=== PATIENT | male | born 1955 | race Caucasian/White ===

== ENCOUNTER 2016-12-21 13:33 | Inpatient (IN) | payer MEDICARE, OTHER ==
[~2016-12-21] VITALS: Ht 188 cm; Wt 109.0 kg
[2016-12-22] MEDS ORDERED: OXYM10TA PO (09:18)
[2016-12-22] MEDS ORDERED: OXYM40TA PO (09:18)
[2016-12-22] MEDS ORDERED: DIPH25CA PO (09:18)
[2016-12-22] MEDS ORDERED: TRIA37.5 PO (11:25)
[2016-12-22] MEDS ORDERED: MELO-1 PO (11:25)
[2016-12-22] MEDS ORDERED: ATOR20TA15 PO (11:25)
[2017-01-08 05:56] VITALS: BP 145/88; PULSE 72; RESP 20; TEMP 98.1; O2SAT 95
[2017-01-08] MEDS ORDERED: ceFAZolin 2 GM PREMIX 50 ML ONE (06:04)
[2017-01-08] MEDS ORDERED: VANCOMYCIN HCL 1000 MG VIAL ONE (06:04)
[2017-01-08] MEDS ORDERED: LACTATED RINGER'S 1000 ML INJ 1,000 ML ONE (06:05)
[2017-01-08] MEDS ORDERED: SODIUM CHLOR 0.9% 250 ML INJ 250 ML ONE (06:05)
[2017-01-08] MEDS ORDERED: GENTAMICIN SULFATE 80 MG/2 ML VIAL ONE (06:07)
[2017-01-08] MEDS: POVIDONE IODINE 7.5% SCRUB 118 ML BOTTLE TOPICAL SCH (06:20)
[2017-01-08] MEDS ORDERED: ACETAMINOPHEN 1000 MG/100 ML VIAL IV ONE (06:30)
[2017-01-08] MEDS ORDERED: INSULIN HUMAN REGULAR 1,000 UNITS/10 ML VIAL SQ PRN (06:45)
[2017-01-08] MEDS ORDERED: CHLORHEXIDINE GLUCONATE 4% SOLN 120 ML BTL TOPICAL SCH (06:45)
[2017-01-08] MEDS ORDERED: SODIUM CHLORIDE 0.9% IV SCH (06:45)
[2017-01-08] MEDS ORDERED: TRANEXAMIC ACID IV SCH (06:45)
[2017-01-08] MEDS ORDERED: TRANEXAMIC PERI-ARTICULAR 3,000 MG/NS 100 ML P-ARTICULR SCH ×2 (06:45)
[2017-01-08] MEDS ORDERED: ceFAZolin 2 GM PREMIX 50 ML IV SCH (06:45)
[2017-01-08] MEDS ORDERED: LACTATED RINGER'S 1000 ML IV PRN (06:45)
[2017-01-08] MEDS ORDERED: CHLORHEXIDINE GLUCONATE 2 % 1 PACK (2 CLOTHS) TOPICAL PRN (06:45)
[2017-01-08] MEDS ORDERED: EXPAREL PERI-ARTICULAR INJECTION (TOTAL VOL. 60 ML) P-ARTICULR SCH ×2 (06:45)
[2017-01-08] MEDS ORDERED: VANCOMYCIN 1000 MG/NS 250 ML (for <70 kg) IV SCH ×2 (06:45)
[2017-01-08] MEDS ORDERED: POVIDONE IODINE 5% (ANTISEPSIS KIT) 4 APPLICATIONS EACH NARE PRN (06:45)
[2017-01-08] MEDS ORDERED: SODIUM CHLORID 0.9% 500 ML IV PRN (06:45)
[2017-01-08] MEDS ORDERED: METOPROLOL TARTRATE 25 MG TAB PO PRN (06:45)
[2017-01-08] MEDS ORDERED: MIDAZOLAM HCL 2 MG/2 ML VIAL ONE (06:47)
[2017-01-08] MEDS ORDERED: DEXAMETHASONE SOD PHOS 4 MG/ML VIAL ONE (06:47)
[2017-01-08] MEDS ORDERED: FAMOTIDINE 20 MG/2 ML VIAL ONE (06:47)
[2017-01-08] MEDS ORDERED: ASPI81CH37 CHEW (06:54)
[2017-01-08] MEDS ORDERED: ENOX40P SQ (06:54)
[2017-01-08] MEDS ORDERED: HYDR-3366 PO (06:55)
[2017-01-08] MEDS ORDERED: BISACODYL 10 MG SUPP RECTAL PRN (07:00)
[2017-01-08] MEDS ORDERED: SODIUM CHLORIDE 0.9% FLUSH 5 ML FLUSH IVF PRN (07:00)
[2017-01-08] MEDS ORDERED: ALUMINUM/MAGNESIUM/SIMETH 30 ML CUP PO PRN (07:00)
[2017-01-08] MEDS ORDERED: HYDROmorphone HCL PF 2 MG/ML VIAL IV PRN (07:00)
[2017-01-08] MEDS ORDERED: diphenhydrAMINE HCL 50 MG/ML VIAL IV PRN (07:00)
[2017-01-08] MEDS ORDERED: ONDANSETRON HCL 4 MG/2 ML VIAL IVP PRN (07:00)
[2017-01-08] MEDS ORDERED: Post-op Orders (for Pharmacy) MISC XX ONE (07:00)
[2017-01-08] MEDS ORDERED: NALOXONE HCL 0.4 MG/ML AMP IV PRN (07:00)
[2017-01-08] MEDS ORDERED: ACETAMINOPHEN/HYDROcodone 325 MG/7.5 MG TAB PO PRN (07:00)
[2017-01-08] MEDS: TRIAMTERENE/HCTZ 37.5 MG/25 MG TAB PO SCH (09:00)
[2017-01-08] MEDS: diphenhydrAMINE HCL 25 MG CAP PO SCH ×3 (09:00→18:00)
[2017-01-08] MEDS: SODIUM CHLORIDE 0.9% FLUSH 5 ML FLUSH IVF SCH ×2 (09:00→21:00)
[2017-01-08] MEDS ORDERED: *morphine SULFATE 8 MG/ML PERIprocedure ONLY ONE ×2 (09:13→09:30)
[2017-01-08] MEDS ORDERED: DO NOT ADM ANY ANTICOAGULANT DRUGS PRN (09:13)
[2017-01-08] MEDS: SODIUM CHLOR 0.9% 1000 ML INJ 1,000 ML IV SCH ×2 (09:38→16:51)
[2017-01-08] MEDS ORDERED: fentaNYL CITRATE 250 MCG/5 ML AMP ONE (09:39)
--- NOTE | 2017-01-08 10:07 | RADRPT ---
EXAM DATE/TIME: 01/08/2017 09:25 [facility] COMPARISON: No previous studies available for comparison. INDICATIONS : Post-op total left hip arthroplasty. MEDICAL HISTORY : Hypertension. SURGICAL HISTORY : Tonsillectomy. Total knee replacement, left. Total knee replacement, right. Inguinal hernia repair. Right eye cateract. ENCOUNTER: Initial ACUITY: 1 day PAIN SCORE: 5/10 LOCATION: Left hip. FINDINGS: 2 AP views of the pelvis were obtained as well as a coned-down view of the left hip and cross table l ateral view of the left hip. This demonstrates that the patient is status post left hip arthroplasty. The femoral and acetabular components are intact and in normal alignment. Extensive degenerative addie nges are noted in the right hip with superior joint space loss, sclerosis and hypertrophic spurring. There is no evidence of fracture. Subcutaneous emphysema is noted surrounding portions of the left hi p. CONCLUSION: 1. Status post left hip arthroplasty. 2. Extensive degenerative change in the right hip. Pantera Smith MD on January 08, 2017 at 10:03 Board Certified Radiologist. This report was verified electronically.
--- NOTE | 2017-01-08 10:33 | PD.CONS ---
HPI Service [facility] Consult Requested By Reason for Consult medical management Primary Care Physician Hali Nazario MD Diagnoses: History of Present Illness patient is a 61 y/o male with history of osteoarthritis who underwent left total hip arthroplasty today. at the time of my evaluation he was resting comfortably with no distress however was complaining of some pain to the left hip. he denies any other complaints including chest pain, sob, dizziness or sob. Review of Systems Constitutional: DENIES: Fever, Weight loss, Chills, Night Sweats Eyes: DENIES: Blurred vision, Diplopia, Vision loss, Double Vision Ears, nose, mouth, throat: DENIES: Tinnitus, Vertigo, Throat pain, Epistaxis Respiratory: DENIES: Apneas, Cough, Snoring, Wheezing, Hemoptysis, Sputum production, Shortness of breath Cardiovascular: DENIES: Chest pain, Palpitations, Syncope, Dyspnea on Exertion , PND, Lower Extremity Edema, Orthopnea, Claudication Gastrointestinal: DENIES: Abdominal pain, Black stools, Bloody stools, Constipation, Diarrhea, Nausea, Vomiting, Difficulty Swallowing, Anorexia Genitourinary: DENIES: Urinary frequency, Urgency, Hematuria, Dysuria Musculoskeletal: COMPLAINS OF: Joint pain (left hip), DENIES: Muscle aches, Stiffness, Joint Swelling Integumentary: DENIES: Rash Neurologic: DENIES: Abnormal gait, Headache, Localized weakness, Paresthesias, Seizures, Speech Problems, Tremor, Poor Balance Psychiatric: DENIES: Anxiety, Confusion, Mood changes, Depression, Hallucinations, Agitation, Suicidal Ideation, Homicidal Ideation, Delusions Past Family Social History Allergies: Coded Allergies: No Known Allergies (Unverified , 01/08/17) Past Medical History osteoarthritis hypertension dyslipidemia Past Surgical History knee replacement tonsillectomy eye surgery Reported Medications Triamterene-HCTZ atorvastatin Active Ordered Medications Current Medications Cefazolin Sodium/ Dextrose (Ancef 2 Gm Premix) 50 ml @ As Directed STK-MED ONCE .ROUTE Last administered on 01/08/17 06:08; Start 01/08/17 at 06:04; Stop at 06:05; Status DC Vancomycin HCl 1000 mg 1,000 mg STK-MED ONCE .ROUTE Last administered on 06:30; Start 01/08/17 at 06:04; Stop 01/08/17 at 06:05; Status DC Sodium Chloride 250 ml @ As Directed STK-MED ONCE .ROUTE Last administered on 01/08/17 06:25; Start 01/08/17 at 06:05; Stop 01/08/17 at 06:06; Status DC Lactated Ringer's (Lr 1000 ml Inj) 1,000 ml @ As Directed STK-MED ONCE .ROUTE Last administered on 01/08/17 05:50; Start 01/08/17 at 06:05; Stop 01/08/17 at 06:06; Status DC Gentamicin Sulfate (Gentamicin Inj) 240 mg STK-MED ONCE .ROUTE Last administered on 01/08/17 07:33; Start 01/08/17 at 06:07; Stop 01/08/17 at 06:08 ; Status DC Acetaminophen 1000 mg 1,000 mg STK-MED ONCE IV ; Start 01/08/17 at 06:30; Stop 01/08/17 at 06:31; Status DC Lactated Ringer's 1,000 ml @ 30 mls/hr Q24H PRN IV SEE LABEL COMMENTS; Start at 06:45; Stop 01/08/17 at 08:49; Status DC Sodium Chloride (NS 500 ml Inj) 500 ml @ 30 mls/hr [id number] PRN IV SEE LABEL COMMENTS; Start 01/08/17 at 06:45; Stop 01/08/17 at 08:49; Status DC Metoprolol Tartrate (Lopressor) 25 mg SANDING MACHINE TENDER AUTOMATIC PRN PO SEE LABEL COMMENTS; Start 01/08/17 at 06:45; Stop 01/11/17 at 06:44 Povidone Iodine (Betadine 5% Antisepsis Kit) 1 applic SANDING MACHINE TEND[employer] PRN EACH NARE SEE LABEL COMMENTS Last administered on 01/08/17 06:20; Start 01/08/17 at 06:45 ; Stop 01/11/17 at 06:44 Chlorhexidine Gluconate (Chlorhexidine 2% Cloth) 3 pack SANDING MACHINE TEND[employer] PRN TOPICAL SEE LABEL COMMENTS; Start 01/08/17 at 06:45; Stop 01/11/17 at 06:44 Insulin Human Regular (NovoLIN R INJ) See Protocol Table ... SANDING MACHINE TENDER [employer] PRN SQ SEE PROTOCOL TABLE; Start 01/08/17 at 06:45; Stop 01/11/17 at 06:44 Povidone Iodine (Betadine 7.5% Scrub) 1 applic ONCE TOPICAL Last administered on 01/08/17 06:20; Start 01/08/17 at 06:45; Stop 01/11/17 at 06:44 Chlorhexidine Gluconate 1 applic 1 applic ONCE TOPICAL ; Start 01/08/17 at 06:45 ; Stop 01/11/17 at 06:44 Cefazolin Sodium/ Dextrose 50 ml @ 100 mls/hr SANDING MACHINE TEND[employer] IV ; Start 01/08/17 at 06:45; Stop 01/11/17 at 06:44 Vancomycin HCl 1000 mg/Sodium Chloride 250 ml @ 250 mls/hr SANDING MACHINE T[employer] IV ; Start 01/08/17 at 06:45; Stop 01/11/17 at 06:44 Tranexamic Acid 1642.5 mg/Sodium Chloride 116.425 ml @ 200 mls/ hr ONCE IV Last administered on 01/08/17 07:15; Start 01/08/17 at 06:45; Stop 01/09/17 at 06:44 Bupivacaine Liposome 20 ml/ Sodium Chloride 60 ml @ 120 mls/hr ONCE P-ARTICULR Last administered on 01/08/17 07:33; Start 01/08/17 at 06:45; Stop 01/09/17 at 06:44 Tranexamic Acid/ Sodium Chloride (Cyklokapron Inj/ NS Inj) 130 ml @ 260 mls/hr ONCE P-ARTICULR Last administered on 01/08/17 07:33; Start 01/08/17 at 06:45; Stop 01/09/17 at 06:44 Famotidine (Pepcid Inj) 20 mg STK-MED ONCE .ROUTE ; Start 01/08/17 at 06:47; Stop 01/08/17 at 06:48; Status DC Midazolam HCl (Versed Inj) 2 mg STK-MED ONCE .ROUTE ; Start 01/08/17 at 06:47; Stop 01/08/17 at 06:48; Status DC Dexamethasone Sodium Phosphate (Decadron Inj) 4 mg STK-MED ONCE .ROUTE ; Start 01/08/17 at 06:47; Stop 01/08/17 at 06:48; Status DC Diphenhydramine HCl (Benadryl) 25 mg TID PO ; Start 01/08/17 at 09:00 Oxymorphone HCl (Opana Er) 10 mg DAILY PO ; Start 01/09/17 at 09:00 Triamterene/HCTZ (Maxzide 37.5-25 Mg) 0.5 tab DAILY PO ; Start 01/08/17 at 09:00 Non-Formulary Medication 80 mg 80 mg Q12HR PO PAIN; Start 01/08/17 at 09:00; Status UNV Sodium Chloride (NS 1000 ml Inj) 1,000 ml @ 100 mls/hr Q10H IV Last administered on 01/08/17t 09:38; Start 01/08/17 at 06:51 IV Flush (NS Flush) 2 ml UNSCH PRN IVF FLUSH AFTER USING IV ACCESS; Start 01/08 at 07:00 IV Flush 2 ml 2 ml BID IVF ; Start 01/08/17 at 09:00 Cefazolin Sodium/ Dextrose (Ancef 2 Gm Premix) 50 ml @ 100 mls/hr Q6H IV ; Start 01/08/17 at 12:00; Stop 01/09/17 at 00:29 Miscellaneous Information (Post-op Orders (for Pharmacy)) STAT ONCE XX ; Start 01/08/17 at 07:00; Stop 01/08/17 at 10:16; Status DC Enoxaparin Sodium (Lovenox Inj) 40 mg Q24H SQ ; Start 01/09/17 at 08:00; Stop at 08:01 Hydromorphone HCl (Dilaudid Pf Inj) 1 mg Q3H PRN IV PAIN GREATER THAN 7; Start 01/08/17 at 07:00 Acetaminophen/ Hydrocodone Bitart ([place] 7.5-325 Mg) 1 tab Q4H PRN PO PAIN LESS THAN 5 ON SCALE; Start 01/08/17 at 07:00 Acetaminophen/ Hydrocodone Bitart ([place] 7.5-325 Mg) 2 tab Q4H PRN PO PAIN SCALE 5 TO 10; Start 01/08/17 at 07:00 Multivitamins/ Minerals Therapeutic (Theragran M Tab) 1 tab BID PO ; Start 01/09 at 21:00; Stop 03/10/17 at 20:59 Ondansetron HCl (Zofran Inj) 4 mg Q6H PRN IVP NAUSEA OR VOMITING; Start at 07:00 Docusate Sodium (Colace) 100 mg BID PO ; Start 01/09/17 at 21:00 Al Hydrox/Mg Hydrox/Simethicone (Mag-Al Plus Susp Liq) 30 ml Q6H PRN PO INDIGESTION; Start 01/08/17 at 07:00 Zolpidem Tartrate (Ambien) 5 mg HS PRN PO SLEEP; Start 01/08/17 at 21:00 Bisacodyl (Dulcolax Supp) 10 mg DAILY PRN RECTAL CONSTIPATION; Start 01/08/17 at 07:00 Naloxone HCl (Narcan Inj) 0.4 mg UNSCH PRN IV RESPIRATORY RATE LESS THAN 10; Start 01/08/17 at 07:00 Diphenhydramine HCl (Benadryl Inj) 25 mg Q6H PRN IV ITCHING; Start 01/08/17 at 07:00 Morphine Sulfate (*morphine INJ PERIprocedure ONLY) 8 mg STK-MED ONCE .ROUTE Last administered on 01/08/17 09:13; Start 01/08/17 at 09:13; Stop 01/08/17 at 09:14; Status DC Morphine Sulfate (*morphine INJ PERIprocedure ONLY) 8 mg STK-MED ONCE .ROUTE Last administered on 01/08/17 09:30; Start 01/08/17 at 09:30; Stop 01/08/17 at 09:31; Status DC Fentanyl Citrate (fentaNYL INJ) 500 mcg STK-MED ONCE .ROUTE ; Start 01/08/17 at 09:39; Stop 01/08/17 at 09:40; Status DC Miscellaneous Information ALL NURSING DEPARTME... UNSCH PRN .XX SEE LABEL COMMENTS; Start 01/08/17 at 09:13; Stop 01/09/17 at 09:12 Family History nor relevant to this consult. Social History no smoking or drinking. Physical Exam Vital Signs Vital Signs Date Time Temp Pulse Resp B/P Pulse Ox O2 Delivery O2 Flow Rate FiO2 01/08/17 10:00 77 14 97/62 93 Nasal Cannula 4 01/08/17 09:45 70 15 134/84 92 Nasal Cannula 4 01/08/17 09:30 64 15 118/77 93 Nasal Cannula 4 01/08/17 09:15 75 17 96/60 92 Nasal Cannula 4 01/08/17 09:09 98.8 76 14 128/96 92 Nasal Cannula 4 01/08/17 05:56 98.1 72 20 145/88 95 Physical Exam GENERAL: This is a well-nourished, well-developed patient, in no apparent distress. HEAD: Atraumatic. Normocephalic. No temporal or scalp tenderness. EYES: Pupils equal round and reactive. Extraocular motions intact. No scleral icterus. No injection or drainage. ENT: Nose without bleeding, purulent drainage or septal hematoma. Throat without erythema, tonsillar hypertrophy or exudate. Uvula midline. Airway patent. NECK: Trachea midline. No JVD or lymphadenopathy. Supple, nontender, no meningeal signs. CARDIOVASCULAR: Regular rate and rhythm without murmurs, gallops, or rubs. RESPIRATORY: Clear to auscultation. Breath sounds equal bilaterally. No wheezes , rales, or rhonchi. GASTROINTESTINAL: Abdomen soft, non-tender, nondistended. No hepato-splenomegaly , or palpable masses. No guarding. MUSCULOSKELETAL: Extremities without clubbing, cyanosis, or edema. No joint tenderness, effusion, or edema noted. No calf tenderness. Negative Homans sign bilaterally. NEUROLOGICAL: Awake and alert. Cranial nerves II through XII intact. Motor and sensory grossly within normal limits. Five out of 5 muscle strength in all muscle groups. Normal speech. Laboratory Laboratory Tests Test 01/08/17 05:50 Blood Type A POSITIVE Antibody Screen NEGATIVE Blood Bank Comment Imaging Last Impressions Hip and Pelvis X-Ray 01/08/17 0651 Signed Impressions: Service Date/Time: Sunday, January 08, 2017 09:25 - CONCLUSION: 1. Status post left hip arthroplasty. 2. Extensive degenerative change in the right hip. Pantera Smith MD Assessment and Plan Assessment and Plan A/P - osteoarthritis- s/p left total hip arthroplasty continue with pain control and PT- management per ortho. -hypertension; resumed home meds- will monitor and adjust the regimen as needed. -DVT prophylaxis with Lovenox- per ortho. thank you for the consult. Discussed Condition With the patient. Frida Bone MD Jan 08, 2017 10:33
[2017-01-08 10:52] VITALS: BP 152/72; PULSE 83; RESP 17; TEMP 95.4; O2SAT 95
[2017-01-08] MEDS: ceFAZolin 2 GM PREMIX 50 ML IV SCH ×2 (11:10→18:28)
[2017-01-08] MEDS ORDERED: ONDANSETRON HCL 4 MG/2 ML VIAL IV PUSH ONE (12:29)
[2017-01-08] MEDS ORDERED: PROPOFOL 200 MG/20 ML AMP IV ONE (12:29)
[2017-01-08] MEDS ORDERED: NEOSTIGMINE 3 MG/3 ML SYR IV ONE (12:29)
[2017-01-08] MEDS ORDERED: LACTATED RINGER'S 1000 ML INJ 1,000 ML IV ONE (12:30)
[2017-01-08] MEDS: ACETAMINOPHEN/HYDROcodone 325 MG/7.5 MG TAB PO PRN (12:33)
--- NOTE | 2017-01-08 13:02 | HHI.DCPOC ---
Discharge Care Plan Diagnosis: (1) Primary localized osteoarthrosis, pelvic region and thigh Your Health Problems Are: Difficulty with ADL Goals to Promote Your Health * To prevent worsening of your condition and complications * To maintain your health at the optimal level Directions to Meet Your Goals Take your medications as prescribed Follow your dietary instruction Follow activity as directed Keep your appointments as scheduled Take your immunizations and boosters as scheduled If your symptoms worsen call your PCP, if no PCP go to Urgent Care Center or Emergency Room Smoking is Dangerous to Your Health. Avoid second hand smoke Call the 24-hour hour crisis hotline for domestic abuse at Sixto Rea Jan 08, 2017 13:02
[2017-01-08] MEDS ORDERED: WALKER WHEELS/F1 MIS (13:03)
[2017-01-08] MEDS ORDERED: COMMODE 3-IN-11 MIS (13:03)
[2017-01-08 14:04] VITALS: O2SAT 93
[2017-01-08 15:00] VITALS: BP 152/83; PULSE 93; RESP 17; TEMP 97.5; O2SAT 92
[2017-01-08 16:16] VITALS: O2SAT 93
--- NOTE | 2017-01-08 16:28 | RADRPT ---
EXAM DATE/TIME: 01/08/2017 07:22 [facility] COMPARISON: No previous studies available for comparison. INDICATIONS : Left anterior total hip arthroplasty. OR. MEDICAL HISTORY : Hypertension. SURGICAL HISTORY : Tonsillectomy. Total knee replacement, left. Total knee replacement, right. Inguinal hernia repair. Right eye cateract. ENCOUNTER: Initial ACUITY: 1 day PAIN SCORE: Non-responsive. LOCATION: Left hip FINDINGS: AP and mildly obliqued view of the left hip were obtained and demonstrate that the patient status pos t arthroplasty. The femoral and acetabular components are intact. There is normal alignment. Overlyin g surgical skin gris. CONCLUSION: Expected postoperative changes status post left hip arthroplasty. Pantera Smith MD on January 08, 2017 at 16:26 Board Certified Radiologist. This report was verified electronically.
[2017-01-08 19:00] VITALS: BP 137/84; PULSE 98; RESP 17; TEMP 97; O2SAT 92
[2017-01-08] MEDS ORDERED: ZOLPIDEM TARTRATE 5 MG TAB PO PRN (21:00)
[2017-01-08] MEDS: OXYMORPHONE 10 MG E.R. TAB PO SCH (21:42)
[2017-01-09] VITALS (10 sets, daily range): BP systolic 85–160; BP diastolic 60–82; PULSE 70–101; RESP 16–20; TEMP 96.2–100.4; O2SAT 91–93
[2017-01-09] MEDS: ceFAZolin 2 GM PREMIX 50 ML IV SCH (01:14)
[2017-01-09] MEDS: SODIUM CHLOR 0.9% 1000 ML INJ 1,000 ML IV SCH ×3 (02:51→22:51)
[2017-01-09 06:23] LABS: HEMATOCRIT 42.2 % (39.0-51.0); MEAN CORPUSCULAR HEMOGLOBIN 29.7 PG (27.0-34.0); MEAN CORPUSCULAR HGB CONC 33.4 % (32.0-36.0); PLATELET COUNT 186 TH/MM3 (150-450); RED BLOOD COUNT 4.75 MIL/MM3 (4.50-5.90); RED CELL DISTRIBUTION WIDTH 13.6 % (11.6-17.2); REVIEW FLAG FINAL
[2017-01-09] MEDS: POVIDONE IODINE 7.5% SCRUB 118 ML BOTTLE TOPICAL SCH (06:45)
--- NOTE | 2017-01-09 08:27 | PD.ORT.PN ---
Subjective Post Op Day #: 1 Subjective Remarks pain tolerable in L hip. Objective Vitals Vital Signs Date Time Temp Pulse Resp B/P Pulse Ox O2 Delivery O2 Flow Rate FiO2 01/09/17 04:00 98.5 76 17 152/70 93 01/09/17 00:00 98.3 80 16 160/80 92 01/08/17 19:00 97.0 98 17 137/84 92 01/08/17 16:16 93 21 01/08/17 15:00 97.5 93 17 152/83 92 01/08/17 14:04 93 Nasal Cannula 4.00 01/08/17 10:52 95.4 83 17 152/72 95 01/08/17 10:00 77 14 97/62 93 Nasal Cannula 4 01/08/17 09:45 70 15 134/84 92 Nasal Cannula 4 01/08/17 09:30 64 15 118/77 93 Nasal Cannula 4 01/08/17 09:15 75 17 96/60 92 Nasal Cannula 4 01/08/17 09:09 98.8 76 14 128/96 92 Nasal Cannula 4 I/O 01/08/17 01/08/17 01/08/17 01/09/17 01/09/17 01/09/17 07:00 15:00 23:00 07:00 15:00 23:00 Intake Total 1580 ml 480 ml 200 ml Output Total 1600 ml 1300 ml 500 ml Balance -20 ml -820 ml -300 ml Intake Oral 480 ml 480 ml 200 ml Other 1100 ml Output Urine Total 800 ml 1300 ml 500 ml Estimated Blood Loss 800 ml # Bowel Movements 0 0 Result Diagram: 01/09/17 0531 Objective Remarks in bed, nad dressing c/d/i neg homans nvi Assessment & Plan Ortho Post Op Day #: 1 Problem List: Assessment and Plan s/p L JACY - anterior approach wbat daily dressing changes lovenox d/c planning to snf [id number] signed rx in chart f/up dr. alex 2 weeks Sixto Rea Jan 09, 2017 08:27
[2017-01-09] MEDS: SODIUM CHLORIDE 0.9% FLUSH 5 ML FLUSH IVF SCH ×2 (09:00→20:17)
[2017-01-09] MEDS: OXYMORPHONE 10 MG E.R. TAB PO SCH ×3 (09:00→20:16)
[2017-01-09] MEDS: ENOXAPARIN SODIUM 40 MG/0.4 ML SYRINGE SQ SCH (09:10)
[2017-01-09] MEDS: TRIAMTERENE/HCTZ 37.5 MG/25 MG TAB PO SCH (09:11)
[2017-01-09] MEDS: diphenhydrAMINE HCL 25 MG CAP PO SCH ×3 (09:21→18:00)
--- NOTE | 2017-01-09 13:19 | HHI.PR ---
Subjective Remarks resting comfortably with no distress. pain is fairly controlled. has occasional cough. no other complaints. d/w the RN. Objective Vitals Vital Signs Date Time Temp Pulse Resp B/P Pulse Ox O2 Delivery O2 Flow Rate FiO2 01/09/17 12:00 96.7 70 20 85/60 92 01/09/17 09:28 93 21 01/09/17 08:00 98.6 83 20 121/70 92 01/09/17 04:00 98.5 76 17 152/70 93 01/09/17 00:00 98.3 80 16 160/80 92 01/08/17 19:00 97.0 98 17 137/84 92 01/08/17 16:16 93 21 01/08/17 15:00 97.5 93 17 152/83 92 01/08/17 14:04 93 Nasal Cannula 4.00 I/O 01/08/17 01/08/17 01/08/17 01/09/17 01/09/17 01/09/17 07:00 15:00 23:00 07:00 15:00 23:00 Intake Total 1580 ml 480 ml 200 ml Output Total 1600 ml 1300 ml 500 ml Balance -20 ml -820 ml -300 ml Intake Oral 480 ml 480 ml 200 ml Other 1100 ml Output Urine Total 800 ml 1300 ml 500 ml Estimated Blood Loss 800 ml # Bowel Movements 0 0 Result Diagram: 01/09/17 0531 Imaging Last Impressions Hip and Pelvis X-Ray 01/08/17 0651 Signed Impressions: Service Date/Time: Sunday, January 08, 2017 09:25 - CONCLUSION: 1. Status post left hip arthroplasty. 2. Extensive degenerative change in the right hip. Pantera Smith MD Hip X-Ray 01/08/17 0000 Signed Impressions: Service Date/Time: Sunday, January 08, 2017 07:22 - CONCLUSION: Expected postoperative changes status post left hip arthroplasty. Pantera Smith MD Objective Remarks GENERAL: This is a well-nourished, well-developed patient, in no apparent distress. CARDIOVASCULAR: Regular rate and regular rhythm without murmurs, gallops, or rubs. RESPIRATORY: Clear to auscultation. Breath sounds equal bilaterally. No wheezes , rales, or rhonchi. GASTROINTESTINAL: Abdomen soft, non-tender, nondistended. Normal, active bowel sounds MUSCULOSKELETAL: Extremities without clubbing, cyanosis, or edema. NEURO: Alert & Oriented x4 to person, place, time, situation. Moves all ext x4 Medications and IVs Current Medications Cefazolin Sodium/ Dextrose (Ancef 2 Gm Premix) 50 ml @ As Directed STK-MED ONCE .ROUTE Last administered on 01/08/17 06:08; Start 01/08/17 at 06:04; Stop at 06:05; Status DC Vancomycin HCl 1000 mg 1,000 mg STK-MED ONCE .ROUTE Last administered on 06:30; Start 01/08/17 at 06:04; Stop 01/08/17 at 06:05; Status DC Sodium Chloride 250 ml @ As Directed STK-MED ONCE .ROUTE Last administered on 01/08/17 06:25; Start 01/08/17 at 06:05; Stop 01/08/17 at 06:06; Status DC Lactated Ringer's (Lr 1000 ml Inj) 1,000 ml @ As Directed STK-MED ONCE .ROUTE Last administered on 01/08/17 05:50; Start 01/08/17 at 06:05; Stop 01/08/17 at 06:06; Status DC Gentamicin Sulfate (Gentamicin Inj) 240 mg STK-MED ONCE .ROUTE Last administered on 01/08/17 07:33; Start 01/08/17 at 06:07; Stop 01/08/17 at 06:08 ; Status DC Acetaminophen 1000 mg 1,000 mg STK-MED ONCE IV ; Start 01/08/17 at 06:30; Stop 01/08/17 at 06:31; Status DC Lactated Ringer's 1,000 ml @ 30 mls/hr Q24H PRN IV SEE LABEL COMMENTS; Start at 06:45; Stop 01/08/17 at 08:49; Status DC Sodium Chloride (NS 500 ml Inj) 500 ml @ 30 mls/hr [id number] PRN IV SEE LABEL COMMENTS; Start 01/08/17 at 06:45; Stop 01/08/17 at 08:49; Status DC Metoprolol Tartrate (Lopressor) 25 mg DESK MAKER PRN PO SEE LABEL COMMENTS; Start 01/08/17 at 06:45; Stop 01/11/17 at 06:44 Povidone Iodine (Betadine 5% Antisepsis Kit) 1 applic DESK MAKER PRN EACH NARE SEE LABEL COMMENTS Last administered on 01/08/17 06:20; Start 01/08/17 at 06:45 ; Stop 01/11/17 at 06:44 Chlorhexidine Gluconate (Chlorhexidine 2% Cloth) 3 pack DESK MAKER PRN TOPICAL SEE LABEL COMMENTS; Start 01/08/17 at 06:45; Stop 01/11/17 at 06:44 Insulin Human Regular (NovoLIN R INJ) See Protocol Table ... DESK MAKER PRN SQ SEE PROTOCOL TABLE; Start 01/08/17 at 06:45; Stop 01/11/17 at 06:44 Povidone Iodine (Betadine 7.5% Scrub) 1 applic ONCE TOPICAL Last administered on 01/08/17 06:20; Start 01/08/17 at 06:45; Stop 01/11/17 at 06:44 Chlorhexidine Gluconate 1 applic 1 applic ONCE TOPICAL ; Start 01/08/17 at 06:45 ; Stop 01/11/17 at 06:44 Cefazolin Sodium/ Dextrose 50 ml @ 100 mls/hr DESK MAKER IV ; Start 01/08/17 at 06:45; Stop 01/11/17 at 06:44 Vancomycin HCl 1000 mg/Sodium Chloride 250 ml @ 250 mls/hr DESK MAKER IV ; Start 01/08/17 at 06:45; Stop 01/11/17 at 06:44 Tranexamic Acid 1642.5 mg/Sodium Chloride 116.425 ml @ 200 mls/ hr ONCE IV Last administered on 01/08/17 07:15; Start 01/08/17 at 06:45; Stop 01/09/17 at 06:44; Status DC Bupivacaine Liposome 20 ml/ Sodium Chloride 60 ml @ 120 mls/hr ONCE P-ARTICULR Last administered on 01/08/17 07:33; Start 01/08/17 at 06:45; Stop 01/09/17 at 06:44; Status DC Tranexamic Acid/ Sodium Chloride (Cyklokapron Inj/ NS Inj) 130 ml @ 260 mls/hr ONCE P-ARTICULR Last administered on 01/08/17 07:33; Start 01/08/17 at 06:45; Stop 01/09/17 at 06:44; Status DC Famotidine (Pepcid Inj) 20 mg STK-MED ONCE .ROUTE ; Start 01/08/17 at 06:47; Stop 01/08/17 at 06:48; Status DC Midazolam HCl (Versed Inj) 2 mg STK-MED ONCE .ROUTE ; Start 01/08/17 at 06:47; Stop 01/08/17 at 06:48; Status DC Dexamethasone Sodium Phosphate (Decadron Inj) 4 mg STK-MED ONCE .ROUTE ; Start 01/08/17 at 06:47; Stop 01/08/17 at 06:48; Status DC Diphenhydramine HCl (Benadryl) 25 mg TID PO Last administered on 01/09/17 09: 21; Start 01/08/17 at 09:00 Oxymorphone HCl (Opana Er) 10 mg DAILY PO ; Start 01/09/17 at 09:00 Triamterene/HCTZ (Maxzide 37.5-25 Mg) 0.5 tab DAILY PO Last administered on 09:11; Start 01/08/17 at 09:00 Oxymorphone HCl 80 mg 80 mg Q12HR PO Last administered on 01/09/17 09:21; Start 01/08/17 at 21:00 Sodium Chloride (NS 1000 ml Inj) 1,000 ml @ 100 mls/hr Q10H IV Last administered on 01/08/17 09:38; Start 01/08/17 at 06:51 IV Flush (NS Flush) 2 ml UNSCH PRN IVF FLUSH AFTER USING IV ACCESS; Start 01/08 at 07:00 IV Flush 2 ml 2 ml BID IVF ; Start 01/08/17 at 09:00 Cefazolin Sodium/ Dextrose (Ancef 2 Gm Premix) 50 ml @ 100 mls/hr Q6H IV Last administered on 01/09/17 01:14; Start 01/08/17 at 12:00; Stop 01/09/17 at 00:29 ; Status DC Miscellaneous Information (Post-op Orders (for Pharmacy)) STAT ONCE XX ; Start 01/08/17 at 07:00; Stop 01/08/17 at 10:16; Status DC Enoxaparin Sodium (Lovenox Inj) 40 mg Q24H SQ Last administered on 01/09/17 09 :10; Start 01/09/17 at 08:00; Stop 01/18/17 at 08:01 Hydromorphone HCl (Dilaudid Pf Inj) 1 mg Q3H PRN IV PAIN GREATER THAN 7; Start 01/08/17 at 07:00 Acetaminophen/ Hydrocodone Bitart ([place] 7.5-325 Mg) 1 tab Q4H PRN PO PAIN LESS THAN 5 ON SCALE; Start 01/08/17 at 07:00 Acetaminophen/ Hydrocodone Bitart ([place] 7.5-325 Mg) 2 tab Q4H PRN PO PAIN SCALE 5 TO 10 Last administered on 01/08/17 12:33; Start 01/08/17 at 07:00 Multivitamins/ Minerals Therapeutic (Theragran M Tab) 1 tab BID PO ; Start 01/09 at 21:00; Stop 03/10/17 at 20:59 Ondansetron HCl (Zofran Inj) 4 mg Q6H PRN IVP NAUSEA OR VOMITING; Start at 07:00 Docusate Sodium (Colace) 100 mg BID PO ; Start 01/09/17 at 21:00 Al Hydrox/Mg Hydrox/Simethicone (Mag-Al Plus Susp Liq) 30 ml Q6H PRN PO INDIGESTION; Start 01/08/17 at 07:00 Zolpidem Tartrate (Ambien) 5 mg HS PRN PO SLEEP; Start 01/08/17 at 21:00 Bisacodyl (Dulcolax Supp) 10 mg DAILY PRN RECTAL CONSTIPATION; Start 01/08/17 at 07:00 Naloxone HCl (Narcan Inj) 0.4 mg UNSCH PRN IV RESPIRATORY RATE LESS THAN 10; Start 01/08/17 at 07:00 Diphenhydramine HCl (Benadryl Inj) 25 mg Q6H PRN IV ITCHING; Start 01/08/17 at 07:00 Morphine Sulfate (*morphine INJ PERIprocedure ONLY) 8 mg STK-MED ONCE .ROUTE Last administered on 01/08/17 09:13; Start 01/08/17 at 09:13; Stop 01/08/17 at 09:14; Status DC Morphine Sulfate (*morphine INJ PERIprocedure ONLY) 8 mg STK-MED ONCE .ROUTE Last administered on 01/08/17t 09:30; Start 01/08/17 at 09:30; Stop 01/08/17 at 09:31; Status DC Fentanyl Citrate (fentaNYL INJ) 500 mcg STK-MED ONCE .ROUTE ; Start 01/08/17 at 09:39; Stop 01/08/17 at 09:40; Status DC Miscellaneous Information ALL NURSING DEPARTME... UNSCH PRN .XX SEE LABEL COMMENTS; Start 01/08/17 at 09:13; Stop 01/09/17 at 09:12; Status DC A/P Assessment and Plan A/P - osteoarthritis- s/p left total hip arthroplasty continue with pain control and PT- management per ortho. -hypertension; resumed home meds- will monitor and adjust the regimen as needed. -COPD ?; albuterol as needed. -DVT prophylaxis with Lovenox- per ortho. Frida Bone MD Jan 09, 2017 13:19
[2017-01-09] MEDS ORDERED: ALBUTEROL SULFATE 90 MCG/ACT HFA 18 GM INHALER INH PRN (13:30)
--- NOTE | 2017-01-09 13:44 | MP ---
cc: NOÉ GALICIA M.D. DATE OF SURGERY 01/08/2017 PREOPERATIVE DIAGNOSIS Left hip osteoarthritis. POSTOPERATIVE DIAGNOSIS Left hip osteoarthritis. PROCEDURE Left total hip arthroplasty SURGEON Dr. Noé Galicia IT ANALYST Celestino Rea PA-C ANESTHESIA General. ESTIMATED BLOOD LOSS 100 cc. COMPLICATIONS None. IMPLANTS USED DePuy Corail size 14 Press-Fit high offset femoral stem, size 54 solid [place] Gription cup, 36 highly cross-linked polyethylene neutral liner, size 36-mm ceramic head, +5 neck. JUSTIFICATION This patient is a 51-year-old male with history of severe end-stage degenerative osteoarthritis involving the left hip. He has severe disabling pain with standing, walking, ambulation, any weight-bearing activities, even has severe pain at rest which interferes with activities of daily living. He has failed greater than three months of nonoperative conservative treatment to include medications, therapy, ambulatory assisted aids, home exercise program, activity modification, weight loss attempts. X-rays of the left hip reveal severe end-stage osteoarthritis with [id number] joint space narrowing, subchondral sclerosis, subchondral cyst, osteophyte formation and subluxation. The patient was counseled as to the risks, benefits and alternatives to a total hip arthroplasty. The risks discussed included but were not limited to anesthesia, bleeding, infection, damage to nerves, blood vessels, pain, stiffness, fracture dislocation, leg length discrepancy, blood clots, pulmonary embolism and even . The patient's pain was severe. He favored the benefits over the risks and did wish to proceed with surgery. PROCEDURE IN DETAIL Written consent was obtained. The patient was identified by name and taken to the operating room, placed supine on the operating room table. General anesthesia was administered as well as 2 grams of IV Ancef and 1 gram of IV vancomycin. The left and right feet were placed in the padded traction boots. The left hip and left lower extremity were prepped and draped using isopropyl alcohol, Hibiclens solution and Chloraprep solution. After a time-out procedure was performed, a longitudinal incision was made over the anterolateral aspect of the left hip. The fascial layer was incised. Dissection was carried over tensor fascia nella, beneath the rectus femoris to allow exposure to the anterior hip capsule. A capsulotomy incision was performed. An oscillating saw was used to perform a femoral neck cut. The diseased osteoarthritic femoral head and neck component was removed. A 10-blade scalpel was used to excise the labrum. Sequential reaming began at size 49, was carried through to size 54. Subsequently, a solid [place] Gription cup was implanted in press-fit manner in approximately 45 degrees of abduction and 10 degrees of anteversion. There was good purchase and fixation after insertion of the cup. A screw hole eliminator was placed, followed by a neutral liner. The latter was impacted in place and tested for stability. Attention was then turned to the femur where the leg was externally rotated, extended and adducted. The capsule was released off the inner surface of the greater trochanter to allow for elevation and lateralization of the femur. A box-cutting osteotome was used to gain entrance into the intramedullary canal of the femur. Box-cutting osteotome was used to gain entrance into the intramedullary canal of the femur. This was followed by canal finder and sequential broaching up to size 14. Calcar planer was used to plane the calcar. Trial head and neck combinations were evaluated and the final component was implanted. With the implants placed, the leg could achieve external rotation of 70 degrees and extension all the way down to the ground without evidence of anterior instability. Soft tissue tension felt appropriate and fluoroscopic imaging showed appropriate implantation of the components. The surgical wound was thoroughly irrigated with sterile saline solution antibiotic impregnated solution. The fascial layer was closed with #1 Vicryl suture, the subcutaneous layer with 2-0 Vicryl suture. The skin was closed with Dermabond. Sterile dressings were applied. The patient tolerated the procedure well with no intraoperative complications noted. Celestino Rea, physician customer care assistant certified, was present during the entire procedure to include patient positioning and the procedure itself. The medical necessity of a physician customer care assistant was indicated in this case due to the complexity of the procedure. He assisted with appropriate manipulation of the leg and also retraction of muscle, tendon, bone and neurovascular structures. He assisted with preparation of bone and also implantation of prosthetic placement. Noé Galicia MD JWM/SSB /8:48 AM /1:30 PM
[2017-01-09] MEDS ORDERED: BISACODYL 10 MG SUPP RECTAL PRN (15:15)
[2017-01-09] MEDS: SENNOSIDES 8.6 MG TAB PO SCH (20:15)
[2017-01-09] MEDS: MULTIVITAMINS/MINERALS THERAPEUTIC TAB PO SCH (20:15)
[2017-01-09] MEDS: MAGNESIUM HYDROXIDE SUSP 30 ML CUP PO SCH (20:16)
[2017-01-09] MEDS: DOCUSATE SODIUM 100 MG CAP PO SCH (20:16)
[2017-01-10 07:08] LABS: HEMATOCRIT 38.8 % (39.0-51.0); MEAN CELL VOLUME 88.2 FL (80.0-100.0); MEAN CORPUSCULAR HEMOGLOBIN 29.7 PG (27.0-34.0); MEAN CORPUSCULAR HGB CONC 33.7 % (32.0-36.0); PLATELET COUNT 170 TH/MM3 (150-450); RED BLOOD COUNT 4.39 MIL/MM3 (4.50-5.90); RED CELL DISTRIBUTION WIDTH 13.4 % (11.6-17.2); REVIEW FLAG FINAL; WHITE BLOOD COUNT 11.6 TH/MM3 (4.0-11.0)
[2017-01-10 08:00] VITALS: BP 126/67; PULSE 80; RESP 16; TEMP 97.4; O2SAT 92
--- NOTE | 2017-01-10 08:00 | PD.ORT.PN ---
Subjective Post Op Day #: 2 Subjective Remarks doing well. denies cp and sob. Objective Vitals Vital Signs Date Time Temp Pulse Resp B/P Pulse Ox O2 Delivery O2 Flow Rate FiO2 01/09/17 23:30 96.2 101 17 139/81 92 01/09/17 20:00 98.3 97 17 148/82 92 01/09/17 18:09 92 21 01/09/17 16:30 100.4 98 16 128/74 91 01/09/17 13:46 140/78 01/09/17 12:00 96.7 70 20 85/60 92 01/09/17 09:28 93 21 01/09/17 08:00 98.6 83 20 121/70 92 I/O 01/09/17 01/09/17 01/09/17 01/10/17 01/10/17 01/10/17 07:00 15:00 23:00 07:00 15:00 23:00 Intake Total 200 ml 240 ml 440 ml 620 ml Output Total 500 ml 400 ml 400 ml Balance -300 ml 240 ml 40 ml 220 ml Intake Oral 200 ml 240 ml 440 ml 620 ml Output Urine Total 500 ml 400 ml 400 ml # Voids 2 # Bowel Movements 0 0 0 Result Diagram: 01/10/17 0632 Objective Remarks in bed, nad incision no erythema, no drainage neg homans nvi Assessment & Plan Ortho Post Op Day #: 2 Problem List: Assessment and Plan s/p L JACY - anterior approach wbat daily dressing changes lovenox OOB and IS d/c planning to snf 3008 signed rx in chart f/up dr. alex 2 weeks Sixto Rea Jan 10, 2017 08:00
[2017-01-10] MEDS: ENOXAPARIN SODIUM 40 MG/0.4 ML SYRINGE SQ SCH (08:35)
[2017-01-10] MEDS: ACETAMINOPHEN/HYDROcodone 325 MG/7.5 MG TAB PO PRN (08:36)
[2017-01-10] MEDS: SODIUM CHLOR 0.9% 1000 ML INJ 1,000 ML IV SCH (08:51)
[2017-01-10] MEDS: SODIUM CHLORIDE 0.9% FLUSH 5 ML FLUSH IVF SCH ×2 (09:00→21:00)
[2017-01-10 09:11] VITALS: O2SAT 96
[2017-01-10] MEDS: diphenhydrAMINE HCL 25 MG CAP PO SCH ×3 (09:45→17:58)
[2017-01-10] MEDS: TRIAMTERENE/HCTZ 37.5 MG/25 MG TAB PO SCH (09:45)
[2017-01-10] MEDS: MAGNESIUM HYDROXIDE SUSP 30 ML CUP PO SCH ×2 (09:45→21:21)
[2017-01-10] MEDS: MULTIVITAMINS/MINERALS THERAPEUTIC TAB PO SCH ×2 (09:45→21:22)
[2017-01-10] MEDS: DOCUSATE SODIUM 100 MG CAP PO SCH ×2 (09:45→21:21)
[2017-01-10] MEDS: OXYMORPHONE 10 MG E.R. TAB PO SCH ×4 (09:47→21:20)
--- NOTE | 2017-01-10 11:10 | HHI.PR ---
Subjective Remarks overall doing fine. pain is controlled. no new complaints. Objective Vitals Vital Signs Date Time Temp Pulse Resp B/P Pulse Ox O2 Delivery O2 Flow Rate FiO2 01/10/17 09:11 96 21 01/10/17 08:00 97.4 80 16 126/67 92 01/09/17 23:30 96.2 101 17 139/81 92 01/09/17 20:00 98.3 97 17 148/82 92 01/09/17 18:09 92 21 01/09/17 16:30 100.4 98 16 128/74 91 01/09/17 13:46 140/78 01/09/17 12:00 96.7 70 20 85/60 92 I/O 01/09/17 01/09/17 01/09/17 01/10/17 01/10/17 01/10/17 07:00 15:00 23:00 07:00 15:00 23:00 Intake Total 200 ml 240 ml 440 ml 620 ml Output Total 500 ml 400 ml 400 ml Balance -300 ml 240 ml 40 ml 220 ml Intake Oral 200 ml 240 ml 440 ml 620 ml Output Urine Total 500 ml 400 ml 400 ml # Voids 2 # Bowel Movements 0 0 0 Result Diagram: 01/10/17 0632 Imaging Last Impressions Hip and Pelvis X-Ray 01/08/17 0651 Signed Impressions: Service Date/Time: Sunday, January 08, 2017 09:25 - CONCLUSION: 1. Status post left hip arthroplasty. 2. Extensive degenerative change in the right hip. Pantera Smith MD Hip X-Ray 01/08/17 0000 Signed Impressions: Service Date/Time: Sunday, January 08, 2017 07:22 - CONCLUSION: Expected postoperative changes status post left hip arthroplasty. Pantera Smith MD Objective Remarks GENERAL: This is a well-nourished, well-developed patient, in no apparent distress. CARDIOVASCULAR: Regular rate and regular rhythm without murmurs, gallops, or rubs. RESPIRATORY: Clear to auscultation. Breath sounds equal bilaterally. No wheezes , rales, or rhonchi. GASTROINTESTINAL: Abdomen soft, non-tender, nondistended. Normal, active bowel sounds MUSCULOSKELETAL: Extremities without clubbing, cyanosis, or edema. NEURO: Alert & Oriented x4 to person, place, time, situation. Moves all ext x4 Medications and IVs Current Medications Cefazolin Sodium/ Dextrose (Ancef 2 Gm Premix) 50 ml @ As Directed STK-MED ONCE .ROUTE Last administered on 01/08/17 06:08; Start 01/08/17 at 06:04; Stop at 06:05; Status DC Vancomycin HCl 1000 mg 1,000 mg STK-MED ONCE .ROUTE Last administered on 06:30; Start 01/08/17 at 06:04; Stop 01/08/17 at 06:05; Status DC Sodium Chloride 250 ml @ As Directed STK-MED ONCE .ROUTE Last administered on 01/08/17 06:25; Start 01/08/17 at 06:05; Stop 01/08/17 at 06:06; Status DC Lactated Ringer's (Lr 1000 ml Inj) 1,000 ml @ As Directed STK-MED ONCE .ROUTE Last administered on 01/08/17 05:50; Start 01/08/17 at 06:05; Stop 01/08/17 at 06:06; Status DC Gentamicin Sulfate (Gentamicin Inj) 240 mg STK-MED ONCE .ROUTE Last administered on 01/08/17 07:33; Start 01/08/17 at 06:07; Stop 01/08/17 at 06:08 ; Status DC Acetaminophen 1000 mg 1,000 mg STK-MED ONCE IV ; Start 01/08/17 at 06:30; Stop 01/08/17 at 06:31; Status DC Lactated Ringer's 1,000 ml @ 30 mls/hr Q24H PRN IV SEE LABEL COMMENTS; Start at 06:45; Stop 01/08/17 at 08:49; Status DC Sodium Chloride (NS 500 ml Inj) 500 ml @ 30 mls/hr [id number] PRN IV SEE LABEL COMMENTS; Start 01/08/17 at 06:45; Stop 01/08/17 at 08:49; Status DC Metoprolol Tartrate (Lopressor) 25 mg PYTHON CONSULTANT PRN PO SEE LABEL COMMENTS; Start 01/08/17 at 06:45; Stop 01/11/17 at 06:44 Povidone Iodine (Betadine 5% Antisepsis Kit) 1 applic PYTHON CONSULTANT PRN EACH NARE SEE LABEL COMMENTS Last administered on 01/08/17 06:20; Start 01/08/17 at 06:45 ; Stop 01/11/17 at 06:44 Chlorhexidine Gluconate (Chlorhexidine 2% Cloth) 3 pack PYTHON CONSULTANT PRN TOPICAL SEE LABEL COMMENTS; Start 01/08/17 at 06:45; Stop 01/11/17 at 06:44 Insulin Human Regular (NovoLIN R INJ) See Protocol Table ... PYTHON CONSULTANT PRN SQ SEE PROTOCOL TABLE; Start 01/08/17 at 06:45; Stop 01/11/17 at 06:44 Povidone Iodine (Betadine 7.5% Scrub) 1 applic ONCE TOPICAL Last administered on 01/08/17 06:20; Start 01/08/17 at 06:45; Stop 01/11/17 at 06:44 Chlorhexidine Gluconate 1 applic 1 applic ONCE TOPICAL ; Start 01/08/17 at 06:45 ; Stop 01/11/17 at 06:44 Cefazolin Sodium/ Dextrose 50 ml @ 100 mls/hr PYTHON CONSULTANT IV ; Start 01/08/17 at 06:45; Stop 01/11/17 at 06:44 Vancomycin HCl 1000 mg/Sodium Chloride 250 ml @ 250 mls/hr PYTHON CONSULTANT IV ; Start 01/08/17 at 06:45; Stop 01/11/17 at 06:44 Tranexamic Acid 1642.5 mg/Sodium Chloride 116.425 ml @ 200 mls/ hr ONCE IV Last administered on 01/08/17 07:15; Start 01/08/17 at 06:45; Stop 01/09/17 at 06:44; Status DC Bupivacaine Liposome 20 ml/ Sodium Chloride 60 ml @ 120 mls/hr ONCE P-ARTICULR Last administered on 01/08/17 07:33; Start 01/08/17 at 06:45; Stop 01/09/17 at 06:44; Status DC Tranexamic Acid/ Sodium Chloride (Cyklokapron Inj/ NS Inj) 130 ml @ 260 mls/hr ONCE P-ARTICULR Last administered on 01/08/17 07:33; Start 01/08/17 at 06:45; Stop 01/09/17 at 06:44; Status DC Famotidine (Pepcid Inj) 20 mg STK-MED ONCE .ROUTE ; Start 01/08/17 at 06:47; Stop 01/08/17 at 06:48; Status DC Midazolam HCl (Versed Inj) 2 mg STK-MED ONCE .ROUTE ; Start 01/08/17 at 06:47; Stop 01/08/17 at 06:48; Status DC Dexamethasone Sodium Phosphate (Decadron Inj) 4 mg STK-MED ONCE .ROUTE ; Start 01/08/17 at 06:47; Stop 01/08/17 at 06:48; Status DC Diphenhydramine HCl (Benadryl) 25 mg TID PO Last administered on 01/10/17 09: 45; Start 01/08/17 at 09:00 Oxymorphone HCl (Opana Er) 10 mg DAILY PO ; Start 01/09/17 at 09:00 Triamterene/HCTZ (Maxzide 37.5-25 Mg) 0.5 tab DAILY PO Last administered on 09:45; Start 01/08/17 at 09:00 Oxymorphone HCl 80 mg 80 mg Q12HR PO Last administered on 01/10/17 09:58; Start 01/08/17 at 21:00 Sodium Chloride (NS 1000 ml Inj) 1,000 ml @ 100 mls/hr Q10H IV Last administered on 01/08/17 09:38; Start 01/08/17 at 06:51 IV Flush (NS Flush) 2 ml UNSCH PRN IVF FLUSH AFTER USING IV ACCESS; Start 01/08 at 07:00 IV Flush 2 ml 2 ml BID IVF Last administered on 01/09/17 20:17; Start at 09:00 Cefazolin Sodium/ Dextrose (Ancef 2 Gm Premix) 50 ml @ 100 mls/hr Q6H IV Last administered on 01/09/17 01:14; Start 01/08/17 at 12:00; Stop 01/09/17 at 00:29 ; Status DC Miscellaneous Information (Post-op Orders (for Pharmacy)) STAT ONCE XX ; Start 01/08/17 at 07:00; Stop 01/08/17 at 10:16; Status DC Enoxaparin Sodium (Lovenox Inj) 40 mg Q24H SQ Last administered on 01/10/17 08 :35; Start 01/09/17 at 08:00; Stop 01/18/17 at 08:01 Hydromorphone HCl (Dilaudid Pf Inj) 1 mg Q3H PRN IV PAIN GREATER THAN 7; Start 01/08/17 at 07:00 Acetaminophen/ Hydrocodone Bitart (Severn 7.5-325 Mg) 1 tab Q4H PRN PO PAIN LESS THAN 5 ON SCALE; Start 01/08/17 at 07:00 Acetaminophen/ Hydrocodone Bitart (Severn 7.5-325 Mg) 2 tab Q4H PRN PO PAIN SCALE 5 TO 10 Last administered on 01/08/17 12:33; Start 01/08/17 at 07:00 Multivitamins/ Minerals Therapeutic (Theragran M Tab) 1 tab BID PO Last administered on 01/10/17 09:45; Start 01/09/17 at 21:00; Stop 03/10/17 at 20:59 Ondansetron HCl (Zofran Inj) 4 mg Q6H PRN IVP NAUSEA OR VOMITING; Start at 07:00 Docusate Sodium (Colace) 100 mg BID PO Last administered on 01/10/17 09:45; Start 01/09/17 at 21:00 Al Hydrox/Mg Hydrox/Simethicone (Mag-Al Plus Susp Liq) 30 ml Q6H PRN PO INDIGESTION; Start 01/08/17 at 07:00 Zolpidem Tartrate (Ambien) 5 mg HS PRN PO SLEEP; Start 01/08/17 at 21:00 Bisacodyl (Dulcolax Supp) 10 mg DAILY PRN RECTAL CONSTIPATION; Start 01/08/17 at 07:00 Naloxone HCl (Narcan Inj) 0.4 mg UNSCH PRN IV RESPIRATORY RATE LESS THAN 10; Start 01/08/17 at 07:00 Diphenhydramine HCl (Benadryl Inj) 25 mg Q6H PRN IV ITCHING; Start 01/08/17 at 07:00 Morphine Sulfate (*morphine INJ PERIprocedure ONLY) 8 mg STK-MED ONCE .ROUTE Last administered on 01/08/17 09:13; Start 01/08/17 at 09:13; Stop 01/08/17 at 09:14; Status DC Morphine Sulfate (*morphine INJ PERIprocedure ONLY) 8 mg STK-MED ONCE .ROUTE Last administered on 01/08/17 09:30; Start 01/08/17 at 09:30; Stop 01/08/17 at 09:31; Status DC Fentanyl Citrate (fentaNYL INJ) 500 mcg STK-MED ONCE .ROUTE ; Start 01/08/17 at 09:39; Stop 01/08/17 at 09:40; Status DC Miscellaneous Information ALL NURSING DEPARTME... UNSCH PRN .XX SEE LABEL COMMENTS; Start 01/08/17 at 09:13; Stop 01/09/17 at 09:12; Status DC Albuterol Sulfate (Ventolin Hfa Inh) 2 puff Q6H PRN INH SHORTNESS OF BREATH Last administered on 01/10/17 08:35; Start 01/09/17 at 13:30 Magnesium Hydroxide (Milk Of Magnkelin Liq) 30 ml BID PO Last administered on 09:45; Start 01/09/17 at 21:00 Sennosides (Senokot) 17.6 mg HS PO Last administered on 01/09/17 20:15; Start 01/09/17 at 21:00 Bisacodyl (Dulcolax Supp) 10 mg Q12H PRN RECTAL CONSTIPATION; Start 01/09/17 at 15:15 A/P Assessment and Plan A/P - osteoarthritis- s/p left total hip arthroplasty continue with pain control and PT- management per ortho. -hypertension; resumed home meds- will monitor and adjust the regimen as needed. -COPD ?; albuterol as needed. -DVT prophylaxis with Lovenox- per ortho. Discharge Planning dc planing per ortho. Frida Bone MD Jan 10, 2017 11:10
[2017-01-10 11:40] VITALS: BP 114/73; PULSE 86; RESP 16; TEMP 98.1; O2SAT 92
[2017-01-10 16:00] VITALS: BP 107/71; PULSE 82; RESP 18; TEMP 99.5; O2SAT 91
[2017-01-10 20:15] VITALS: BP 126/77; PULSE 76; RESP 17; TEMP 96; O2SAT 91
[2017-01-10] MEDS: SENNOSIDES 8.6 MG TAB PO SCH (21:21)
[2017-01-11 00:05] VITALS: BP 117/71; PULSE 87; RESP 17; TEMP 98.8; O2SAT 91
[2017-01-11 04:05] VITALS: BP 118/72; PULSE 71; RESP 17; TEMP 97; O2SAT 92
[2017-01-11 05:56] LABS: HEMATOCRIT 38.3 % (39.0-51.0); MEAN CELL VOLUME 87.5 FL (80.0-100.0); MEAN CORPUSCULAR HEMOGLOBIN 29.4 PG (27.0-34.0); MEAN CORPUSCULAR HGB CONC 33.7 % (32.0-36.0); PLATELET COUNT 188 TH/MM3 (150-450); RED BLOOD COUNT 4.38 MIL/MM3 (4.50-5.90); RED CELL DISTRIBUTION WIDTH 13.2 % (11.6-17.2); REVIEW FLAG FINAL; WHITE BLOOD COUNT 11.5 TH/MM3 (4.0-11.0)
--- NOTE | 2017-01-11 07:49 | PD.ORT.PN ---
Subjective Post Op Day #: 3 Subjective Remarks doing well. denies cp and sob. waiting to go to snf. Objective Vitals Vital Signs Date Time Temp Pulse Resp B/P Pulse Ox O2 Delivery O2 Flow Rate FiO2 01/11/17 04:05 97.0 71 17 118/72 92 01/11/17 00:05 98.8 87 17 117/71 91 01/10/17 20:15 96.0 76 17 126/77 91 01/10/17 16:00 99.5 82 18 107/71 91 01/10/17 11:40 98.1 86 16 114/73 92 01/10/17 11:00 16 01/10/17 09:11 96 21 01/10/17 08:00 97.4 80 16 126/67 92 I/O 01/10/17 01/10/17 01/10/17 01/11/17 01/11/17 01/11/17 07:00 15:00 23:00 07:00 15:00 23:00 Intake Total 620 ml 1200 ml 240 ml Output Total 400 ml 2200 ml Balance 220 ml -1000 ml 240 ml Intake Oral 620 ml 1200 ml 240 ml IV Total 0 ml Output Urine Total 400 ml 2200 ml # Voids 2 # Bowel Movements 0 0 2 Result Diagram: 01/11/17 0512 Objective Remarks in bed, nad dressing c/d/i neg homans nvi Assessment & Plan Ortho Post Op Day #: 3 Problem List: Assessment and Plan s/p L JACY - anterior approach wbat daily dressing changes lovenox OOB and IS d/c planning to snf - cleared today 3008 signed rx in chart f/up dr. alex 2 weeks Sixto Rea Jan 11, 2017 07:49
--- NOTE | 2017-01-11 07:57 | HHI.PR ---
Subjective Remarks resting comfortably with no distress. pain is controlled. had a BM. no other complaints. Objective Vitals Vital Signs Date Time Temp Pulse Resp B/P Pulse Ox O2 Delivery O2 Flow Rate FiO2 01/11/17 04:05 97.0 71 17 118/72 92 01/11/17 00:05 98.8 87 17 117/71 91 01/10/17 20:15 96.0 76 17 126/77 91 01/10/17 16:00 99.5 82 18 107/71 91 01/10/17 11:40 98.1 86 16 114/73 92 01/10/17 11:00 16 01/10/17 09:11 96 21 01/10/17 08:00 97.4 80 16 126/67 92 I/O 01/10/17 01/10/17 01/10/17 01/11/17 01/11/17 01/11/17 07:00 15:00 23:00 07:00 15:00 23:00 Intake Total 620 ml 1200 ml 240 ml Output Total 400 ml 2200 ml Balance 220 ml -1000 ml 240 ml Intake Oral 620 ml 1200 ml 240 ml IV Total 0 ml Output Urine Total 400 ml 2200 ml # Voids 2 # Bowel Movements 0 0 2 Result Diagram: 01/11/17 0512 Imaging Last Impressions Hip and Pelvis X-Ray 01/08/17 0651 Signed Impressions: Service Date/Time: Sunday, January 08, 2017 09:25 - CONCLUSION: 1. Status post left hip arthroplasty. 2. Extensive degenerative change in the right hip. Pantera Smith MD Hip X-Ray 01/08/17 0000 Signed Impressions: Service Date/Time: Sunday, January 08, 2017 07:22 - CONCLUSION: Expected postoperative changes status post left hip arthroplasty. Pantera Smith MD Objective Remarks GENERAL: This is a well-nourished, well-developed patient, in no apparent distress. CARDIOVASCULAR: Regular rate and regular rhythm without murmurs, gallops, or rubs. RESPIRATORY: Clear to auscultation. Breath sounds equal bilaterally. No wheezes , rales, or rhonchi. GASTROINTESTINAL: Abdomen soft, non-tender, nondistended. Normal, active bowel sounds MUSCULOSKELETAL: Extremities without clubbing, cyanosis, or edema. NEURO: Alert & Oriented x4 to person, place, time, situation. Moves all ext x4 Medications and IVs Current Medications Cefazolin Sodium/ Dextrose (Ancef 2 Gm Premix) 50 ml @ As Directed STK-MED ONCE .ROUTE Last administered on 01/08/17 06:08; Start 01/08/17 at 06:04; Stop at 06:05; Status DC Vancomycin HCl 1000 mg 1,000 mg STK-MED ONCE .ROUTE Last administered on 06:30; Start 01/08/17 at 06:04; Stop 01/08/17 at 06:05; Status DC Sodium Chloride 250 ml @ As Directed STK-MED ONCE .ROUTE Last administered on 01/08/17 06:25; Start 01/08/17 at 06:05; Stop 01/08/17 at 06:06; Status DC Lactated Ringer's (Lr 1000 ml Inj) 1,000 ml @ As Directed STK-MED ONCE .ROUTE Last administered on 01/08/17 05:50; Start 01/08/17 at 06:05; Stop 01/08/17 at 06:06; Status DC Gentamicin Sulfate (Gentamicin Inj) 240 mg STK-MED ONCE .ROUTE Last administered on 01/08/17 07:33; Start 01/08/17 at 06:07; Stop 01/08/17 at 06:08 ; Status DC Acetaminophen 1000 mg 1,000 mg STK-MED ONCE IV ; Start 01/08/17 at 06:30; Stop 01/08/17 at 06:31; Status DC Lactated Ringer's 1,000 ml @ 30 mls/hr Q24H PRN IV SEE LABEL COMMENTS; Start at 06:45; Stop 01/08/17 at 08:49; Status DC Sodium Chloride (NS 500 ml Inj) 500 ml @ 30 mls/hr [id number] PRN IV SEE LABEL COMMENTS; Start 01/08/17 at 06:45; Stop 01/08/17 at 08:49; Status DC Metoprolol Tartrate (Lopressor) 25 mg LEACH TANK TENDER PRN PO SEE LABEL COMMENTS; Start 01/08/17 at 06:45; Stop 01/11/17 at 06:44; Status DC Povidone Iodine (Betadine 5% Antisepsis Kit) 1 applic LEACH TANK TENDER PRN EACH NARE SEE LABEL COMMENTS Last administered on 01/08/17 06:20; Start 01/08/17 at 06:45 ; Stop 01/11/17 at 06:44; Status DC Chlorhexidine Gluconate (Chlorhexidine 2% Cloth) 3 pack LEACH TANK TENDER PRN TOPICAL SEE LABEL COMMENTS; Start 01/08/17 at 06:45; Stop 01/11/17 at 06:44; Status DC Insulin Human Regular (NovoLIN R INJ) See Protocol Table ... LEACH TANK TENDER PRN SQ SEE PROTOCOL TABLE; Start 01/08/17 at 06:45; Stop 01/11/17 at 06:44; Status DC Povidone Iodine (Betadine 7.5% Scrub) 1 applic ONCE TOPICAL Last administered on 01/08/17 06:20; Start 01/08/17 at 06:45; Stop 01/11/17 at 06:44; Status DC Chlorhexidine Gluconate 1 applic 1 applic ONCE TOPICAL ; Start 01/08/17 at 06:45 ; Stop 01/11/17 at 06:44; Status DC Cefazolin Sodium/ Dextrose 50 ml @ 100 mls/hr LEACH TANK TENDER IV ; Start 01/08/17 at 06:45; Stop 01/11/17 at 06:44; Status DC Vancomycin HCl 1000 mg/Sodium Chloride 250 ml @ 250 mls/hr LEACH TANK TENDER IV ; Start 01/08/17 at 06:45; Stop 01/11/17 at 06:44; Status DC Tranexamic Acid 1642.5 mg/Sodium Chloride 116.425 ml @ 200 mls/ hr ONCE IV Last administered on 01/08/17 07:15; Start 01/08/17 at 06:45; Stop 01/09/17 at 06:44; Status DC Bupivacaine Liposome 20 ml/ Sodium Chloride 60 ml @ 120 mls/hr ONCE P-ARTICULR Last administered on 01/08/17 07:33; Start 01/08/17 at 06:45; Stop 01/09/17 at 06:44; Status DC Tranexamic Acid/ Sodium Chloride (Cyklokapron Inj/ NS Inj) 130 ml @ 260 mls/hr ONCE P-ARTICULR Last administered on 01/08/17 07:33; Start 01/08/17 at 06:45; Stop 01/09/17 at 06:44; Status DC Famotidine (Pepcid Inj) 20 mg STK-MED ONCE .ROUTE ; Start 01/08/17 at 06:47; Stop 01/08/17 at 06:48; Status DC Midazolam HCl (Versed Inj) 2 mg STK-MED ONCE .ROUTE ; Start 01/08/17 at 06:47; Stop 01/08/17 at 06:48; Status DC Dexamethasone Sodium Phosphate (Decadron Inj) 4 mg STK-MED ONCE .ROUTE ; Start 01/08/17 at 06:47; Stop 01/08/17 at 06:48; Status DC Diphenhydramine HCl (Benadryl) 25 mg TID PO Last administered on 01/10/17 17: 58; Start 01/08/17 at 09:00 Oxymorphone HCl (Opana Er) 10 mg DAILY PO ; Start 01/09/17 at 09:00 Triamterene/HCTZ (Maxzide 37.5-25 Mg) 0.5 tab DAILY PO Last administered on 09:45; Start 01/08/17 at 09:00 Oxymorphone HCl 80 mg 80 mg Q12HR PO Last administered on 01/10/17 21:20; Start 01/08/17 at 21:00 Sodium Chloride (NS 1000 ml Inj) 1,000 ml @ 100 mls/hr Q10H IV Last administered on 01/08/17 09:38; Start 01/08/17 at 06:51 IV Flush (NS Flush) 2 ml UNSCH PRN IVF FLUSH AFTER USING IV ACCESS; Start 01/08 at 07:00 IV Flush 2 ml 2 ml BID IVF Last administered on 01/09/17 20:17; Start at 09:00 Cefazolin Sodium/ Dextrose (Ancef 2 Gm Premix) 50 ml @ 100 mls/hr Q6H IV Last administered on 01/09/17 01:14; Start 01/08/17 at 12:00; Stop 01/09/17 at 00:29 ; Status DC Miscellaneous Information (Post-op Orders (for Pharmacy)) STAT ONCE XX ; Start 01/08/17 at 07:00; Stop 01/08/17 at 10:16; Status DC Enoxaparin Sodium (Lovenox Inj) 40 mg Q24H SQ Last administered on 01/10/17 08 :35; Start 01/09/17 at 08:00; Stop 01/18/17 at 08:01 Hydromorphone HCl (Dilaudid Pf Inj) 1 mg Q3H PRN IV PAIN GREATER THAN 7; Start 01/08/17 at 07:00 Acetaminophen/ Hydrocodone Bitart ([place] 7.5-325 Mg) 1 tab Q4H PRN PO PAIN LESS THAN 5 ON SCALE; Start 01/08/17 at 07:00 Acetaminophen/ Hydrocodone Bitart ([place] 7.5-325 Mg) 2 tab Q4H PRN PO PAIN SCALE 5 TO 10 Last administered on 01/08/17 12:33; Start 01/08/17 at 07:00 Multivitamins/ Minerals Therapeutic (Theragran M Tab) 1 tab BID PO Last administered on 01/10/17 21:22; Start 01/09/17 at 21:00; Stop 03/10/17 at 20:59 Ondansetron HCl (Zofran Inj) 4 mg Q6H PRN IVP NAUSEA OR VOMITING; Start at 07:00 Docusate Sodium (Colace) 100 mg BID PO Last administered on 01/10/17 21:21; Start 01/09/17 at 21:00 Al Hydrox/Mg Hydrox/Simethicone (Mag-Al Plus Susp Liq) 30 ml Q6H PRN PO INDIGESTION; Start 01/08/17 at 07:00 Zolpidem Tartrate (Ambien) 5 mg HS PRN PO SLEEP; Start 01/08/17 at 21:00 Bisacodyl (Dulcolax Supp) 10 mg DAILY PRN RECTAL CONSTIPATION; Start 01/08/17 at 07:00 Naloxone HCl (Narcan Inj) 0.4 mg UNSCH PRN IV RESPIRATORY RATE LESS THAN 10; Start 01/08/17 at 07:00 Diphenhydramine HCl (Benadryl Inj) 25 mg Q6H PRN IV ITCHING; Start 01/08/17 at 07:00 Morphine Sulfate (*morphine INJ PERIprocedure ONLY) 8 mg STK-MED ONCE .ROUTE Last administered on 01/08/17 09:13; Start 01/08/17 at 09:13; Stop 01/08/17 at 09:14; Status DC Morphine Sulfate (*morphine INJ PERIprocedure ONLY) 8 mg STK-MED ONCE .ROUTE Last administered on 01/08/17 09:30; Start 01/08/17 at 09:30; Stop 01/08/17 at 09:31; Status DC Fentanyl Citrate (fentaNYL INJ) 500 mcg STK-MED ONCE .ROUTE ; Start 01/08/17 at 09:39; Stop 01/08/17 at 09:40; Status DC Miscellaneous Information ALL NURSING DEPARTME... UNSCH PRN .XX SEE LABEL COMMENTS; Start 01/08/17 at 09:13; Stop 01/09/17 at 09:12; Status DC Albuterol Sulfate (Ventolin Hfa Inh) 2 puff Q6H PRN INH SHORTNESS OF BREATH Last administered on 01/10/17 08:35; Start 01/09/17 at 13:30 Magnesium Hydroxide (Milk Of Magnesia Liq) 30 ml BID PO Last administered on 21:21; Start 01/09/17 at 21:00 Sennosides (Senokot) 17.6 mg HS PO Last administered on 01/10/17 21:21; Start 01/09/17 at 21:00 Bisacodyl (Dulcolax Supp) 10 mg Q12H PRN RECTAL CONSTIPATION; Start 01/09/17 at 15:15 A/P Assessment and Plan A/P - osteoarthritis- s/p left total hip arthroplasty continue with pain control and PT- management per ortho. -hypertension; resumed home meds- will monitor and adjust the regimen as needed. -COPD ?; albuterol as needed. -DVT prophylaxis with Lovenox- per ortho. Discharge Planning dc planing per ortho. medically clear for discharge. Frida Bone MD Jan 11, 2017 07:57
[2017-01-11 08:00] VITALS: BP 130/75; PULSE 78; RESP 20; TEMP 96.8; O2SAT 92
[2017-01-11] MEDS ORDERED: OXYM40TA PO (08:00)
[2017-01-11] MEDS ORDERED: OXYM10TA PO (08:00)
[2017-01-11] MEDS: SODIUM CHLORIDE 0.9% FLUSH 5 ML FLUSH IVF SCH (09:00)
[2017-01-11] MEDS: DOCUSATE SODIUM 100 MG CAP PO SCH (09:00)
[2017-01-11] MEDS: OXYMORPHONE 10 MG E.R. TAB PO SCH ×2 (09:00→09:07)
[2017-01-11] MEDS: MAGNESIUM HYDROXIDE SUSP 30 ML CUP PO SCH (09:00)
[2017-01-11] MEDS: MULTIVITAMINS/MINERALS THERAPEUTIC TAB PO SCH (09:06)
[2017-01-11] MEDS: ENOXAPARIN SODIUM 40 MG/0.4 ML SYRINGE SQ SCH (09:06)
[2017-01-11] MEDS: diphenhydrAMINE HCL 25 MG CAP PO SCH (09:08)
[2017-01-11] MEDS: TRIAMTERENE/HCTZ 37.5 MG/25 MG TAB PO SCH (09:08)
[2017-01-11 12:00] VITALS: BP 130/82; PULSE 80; RESP 19; TEMP 97.2; O2SAT 94
--- NOTE | 2017-01-16 09:14 | MD ---
cc: NOÉ GALICIA ADMISSION DATE: 01/08/2017 DISCHARGE DATE: 01/11/2017 ADMITTING DIAGNOSIS Severe degenerative osteoarthritis, left hip. DISCHARGE DIAGNOSIS Severe degenerative osteoarthritis, left hip. HISTORY OF PRESENT ILLNESS Mr. Connors is a 61-year-old male who presented to the [facility] for evaluation by Dr. Noé Galicia regarding his severe bilateral hip pain, left greater than right. He states the pain has been progressive for many years but is currently becoming unbearable. He has a difficult time with ambulation. He states his pain is aggravated by weightbearing activities and he has no alleviating factors. He notes in the past he has tried assistive devices, extensive physical therapy and home exercise program, all without relief of his symptoms. He does have a history of well-functioning bilateral total knee arthroplasties. The patient has x-ray evidence of severe degenerative osteoarthritis of bilateral hips. While in the office the patient was counseled on his diagnosis and treatment options. The risks, benefits and indications of both were discussed. The patient did elect to proceed with surgical intervention to include a left total hip arthroplasty. Date of surgery 01/08/2017: Left total hip arthroplasty, anterior approach. POST-OP After surgery the patient was admitted to [facility] where he received appropriate medical management, pain control and DVT prophylaxis as well as physical therapy. DISCHARGE Once being discharged from the hospital the patient is cleared to go to a senior care facility. He is in stable condition. He can weight bear as tolerate with anterior hip precautions. He is to receive daily dressing changes and has been instructed on appropriate wound care management. The patient has been provided prescriptions for pain control as well as DVT prophylaxis medication. He has also been provided a follow-up appointment to see Dr. Noé Galicia in the office approximately two weeks from his date of surgery. The patient has asked appropriate questions which have all been answered. The patient is cleared for discharge. Dictated by: Noé Rea PA-C MD CASEY Hanson/RUPAL /7:53 AM /9:13 AM
== END 2017-01-11 15:06 | DRG 470 ==
LOC: HSDI 01-08 05:21 → N06B 01-08 10:15
PROVIDERS: ADMIT Orthopaedic Surgery Sports Medicine; ATTEND Orthopaedic Surgery Sports Medicine
PROC: 0SRB04A Replacement of Left Hip Joint with Ceramic on Polyethylene Synthetic Substitute, Uncemented, Open Approach (ICD-10-PCS; principal; 2017-01-08 06:49)
DX: M16.12 Unilateral primary osteoarthritis, left hip (principal); I10 Essential (primary) hypertension; E78.5 Hyperlipidemia, unspecified; Z96.659 Presence of unspecified artificial knee joint; J44.9 Chronic obstructive pulmonary disease, unspecified; Z87.891 Personal history of nicotine dependence; M54.9 Dorsalgia, unspecified
CPT/HCPCS: 73502; 76000; 85027; 86850; 86900; 86901; 94150; C1776; C9290; J0131; J0690; J1100; J1580; J1650; J2250; J2270; J2405; J2710; J3010; J3370; J7030; J7050; J7120

== ENCOUNTER → 2016-12-22 | Outpatient (CLI) | payer MEDICARE, OTHER ==
[~2016-12-22] MED LIST: ASPI81CH37 CHEW; ATOR20TA15 PO; CHOLESTEROL MED; COMMODE 3-IN-11 MIS; DIPH25 PO; DIPH25CA PO; ENOX40P SQ; HYDR-3366 PO; MELO-1 PO; OXYM10 PO; OXYM10TA PO; OXYM40TA PO; OXYM40TA5 PO; PENI500T PO; TRIA37.5 PO; WALKER WHEELS/F1 MIS
[2016-12-22 09:30] LABS: AUTOMATED NEUTROPHIL # 3.7 TH/MM3 (1.8-7.7); BASOPHIL # 0.1 TH/MM3 (0-0.2); BASOPHIL % 0.7 % (0.0-2.0); EOSINOPHIL # 0.2 TH/MM3 (0-0.4); EOSINOPHIL % 2.7 % (0.0-4.0); HEMATOCRIT 51.5 % (39.0-51.0); HEMO FLAGS DIFF FINAL; LYMPH % 41.6 % (9.0-44.0); LYMPHOCYTE # 3.3 TH/MM3 (1.0-4.8); MEAN CORPUSCULAR HGB CONC 33.7 % (32.0-36.0); MONO % 9.2 % (0.0-8.0); NEUT % 45.8 % (16.0-70.0); PLATELET COUNT 223 TH/MM3 (150-450); RED BLOOD COUNT 5.78 MIL/MM3 (4.50-5.90); RED CELL DISTRIBUTION WIDTH 13.8 % (11.6-17.2)
[2016-12-22 09:36] LABS: APTT (PATIENT) 29.6 SEC (24.3-30.1); PROTHROMBIN TIME - PATIENT 11.3 SEC (9.8-11.6)
[2016-12-22 09:57] LABS: WESTERGREN SEDIMENTATION RATE 1 mm/hr (0-20)
[2016-12-22 10:17] LABS: BLOOD, URINE NEG (NEG); COMMENT (UR) CULT NOT INDICATED; CULTURE IF INDICATED CULT NOT INDICATED; GLUCOSE,URINE NEG (NEG); KETONE, URINE NEG (NEG); MUCUS URINE FEW /lpf (OCC); NITRITE,URINE NEG (NEG); URINE COLOR LIGHT-YELLOW (YELLW/STRAW)
[2016-12-22 10:17] LABS: ALKALINE PHOSPHATASE 103 U/L (45-117); ALT (GPT) 31 U/L (12-78); ANION GAP 8 MEQ/L (5-15); AST (GOT) 22 U/L (15-37); BICARBONATE 27.7 MEQ/L (21.0-32.0); BLOOD UREA NITROGEN 18 MG/DL (7-18); CHLORIDE 102 MEQ/L (98-107); GLOMERULAR FILTRATION RATE 78 ML/MIN (>89); GLUCOSE,FASTING 96 MG/DL (74-99); POTASSIUM 4.4 MEQ/L (3.5-5.1); SODIUM (NA) 138 MEQ/L (136-145); TOTAL BILIRUBIN ADULT 0.6 MG/DL (0.2-1.0)
--- NOTE | 2016-12-22 10:18 | RADRPT ---
EXAM DATE/TIME: 12/22/2016 09:57 [facility] COMPARISON: No previous studies available for comparison. INDICATIONS : Evaluate for pnuemonia,pnuemothorax, or communicable diseases. MEDICAL HISTORY : Chronic obstructive pulmonary disease. SURGICAL HISTORY : None. Total hip replacement ENCOUNTER: Initial ACUITY: 1 day PAIN SCORE: 0/10 LOCATION: Bilateral chest FINDINGS: Lungs are hyperinflated but focally clear. No effusion suspected. Cardiac contours are satisfactory. Degenerative change present in the spine. CONCLUSION: Emphysema. No acute disease Christian Yung MD on December 22, 2016 at 10:15 Board Certified Radiologist. This report was verified electronically.
--- NOTE | 2016-12-23 14:28 | EKG ---
Date Performed: 12/22/2016 Time Performed: 09:33:39 PTAGE: 61 years EKG: Sinus rhythm RIGHT BUNDLE BRANCH BLOCK ABNORMAL ECG NO PREVIOUS TRACING DOCTOR: Tejal Aguilar Interpretating Date/Time 12/23/2016 14:24:32
== END ==
LOC: CPRE 08:40
PROVIDERS: ATTEND Orthopaedic Surgery Sports Medicine
DX: Z01.812 Encounter for preprocedural laboratory examination (principal); Z01.810 Encounter for preprocedural cardiovascular examination; Z01.818 Encounter for other preprocedural examination; M16.12 Unilateral primary osteoarthritis, left hip; I45.10 Unspecified right bundle-branch block; R94.31 Abnormal electrocardiogram [ECG] [EKG]
CPT/HCPCS: 36415; 71020; 80053; 81001; 85025; 85610; 85652; 85730; 93005

== ENCOUNTER 2017-04-26 13:36 | Inpatient (IN) | payer MEDICARE, OTHER ==
[~2017-04-26] VITALS: Ht 185.4 cm; Wt 111.8 kg
[~2017-04-26 13:36] MED LIST changes: -ASPI81CH37 CHEW; -CHOLESTEROL MED; -DIPH25 PO; -ENOX40P SQ; -HYDR-3366 PO; -MELO-1 PO; -OXYM10 PO; -OXYM40TA PO; -PENI500T PO
[2017-04-27] MEDS ORDERED: METOPROLOL TARTRATE 25 MG TAB PO PRN (05:45)
[2017-04-27] MEDS ORDERED: LACTATED RINGER'S 1000 ML IV PRN (05:45)
[2017-04-27] MEDS ORDERED: VANCOMYCIN 1000 MG/NS 250 ML (for <70 kg) IV SCH ×2 (05:45)
[2017-04-27] MEDS ORDERED: INSULIN HUMAN REGULAR 1,000 UNITS/10 ML VIAL SQ PRN (05:45)
[2017-04-27] MEDS ORDERED: CHLORHEXIDINE GLUCONATE 2 % 1 PACK (2 CLOTHS) TOPICAL PRN (05:45)
[2017-04-27] MEDS ORDERED: POVIDONE IODINE 5% (ANTISEPSIS KIT) 4 APPLICATIONS EACH NARE PRN (05:45)
[2017-04-27] MEDS ORDERED: CHLORHEXIDINE GLUCONATE 4% SOLN 120 ML BTL TOPICAL SCH (05:45)
[2017-04-27] MEDS ORDERED: SODIUM CHLORID 0.9% 500 ML IV PRN (05:45)
[2017-04-27] MEDS ORDERED: ceFAZolin 2 GM PREMIX 50 ML IV SCH (05:45)
[2017-04-27] MEDS ORDERED: POVIDONE IODINE 7.5% SCRUB 118 ML BOTTLE TOPICAL SCH (05:45)
[2017-04-27] MEDS ORDERED: DIPH25CA PO (05:48)
[2017-04-27 05:54] VITALS: BP 142/100; PULSE 76; RESP 20; TEMP 98; O2SAT 93
[2017-04-27] MEDS ORDERED: DEXAMETHASONE SOD PHOS 20 MG/5 ML VIAL IV SCH (06:00)
[2017-04-27] MEDS ORDERED: GENTAMICIN SULFATE 80 MG/2 ML VIAL ONE (06:11)
[2017-04-27] MEDS ORDERED: DEXAMETHASONE SOD PHOS 4 MG/ML VIAL ONE (06:38)
[2017-04-27] MEDS ORDERED: MIDAZOLAM HCL 2 MG/2 ML VIAL ONE (06:38)
[2017-04-27] MEDS ORDERED: fentaNYL CITRATE 250 MCG/5 ML AMP ONE (06:38)
[2017-04-27] MEDS ORDERED: ACETAMINOPHEN 1000 MG/100 ML VIAL IV ONE (06:38)
[2017-04-27] MEDS ORDERED: FAMOTIDINE 20 MG/2 ML VIAL ONE (06:38)
[2017-04-27] MEDS ORDERED: HYDR-3288 PO (06:44)
[2017-04-27] MEDS ORDERED: ONDANSETRON HCL 4 MG/2 ML VIAL IVP PRN (06:45)
[2017-04-27] MEDS ORDERED: Post-op Orders (for Pharmacy) MISC XX ONE (06:45)
[2017-04-27] MEDS ORDERED: ENOX40P SQ (06:45)
[2017-04-27] MEDS ORDERED: SODIUM CHLORIDE 0.9% FLUSH 5 ML FLUSH IVF PRN (06:45)
[2017-04-27] MEDS ORDERED: ZOLPIDEM TARTRATE 5 MG TAB PO PRN (06:45)
[2017-04-27] MEDS ORDERED: OXYMORPHONE 10 MG E.R. TAB PO PRN (06:45)
[2017-04-27] MEDS ORDERED: MORPHINE SULFATE 4 MG/ML INJ IV PUSH PRN (06:45)
[2017-04-27] MEDS ORDERED: BISACODYL 10 MG SUPP RECTAL PRN (06:45)
[2017-04-27] MEDS ORDERED: ASPI81CH37 CHEW (06:45)
[2017-04-27] MEDS ORDERED: diphenhydrAMINE HCL 50 MG/ML VIAL IV PRN (06:45)
[2017-04-27] MEDS ORDERED: ACETAMINOPHEN/HYDROcodone 325 MG/10 MG TAB PO PRN (06:45)
[2017-04-27] MEDS ORDERED: SODIUM CHLORIDE 0.9% IV SCH (07:00)
[2017-04-27] MEDS ORDERED: TRANEXAMIC PERI-ARTICULAR 3,000 MG/NS 100 ML P-ARTICULR SCH ×2 (07:00)
[2017-04-27] MEDS ORDERED: EXPAREL PERI-ARTICULAR INJECTION (TOTAL VOL. 60 ML) P-ARTICULR SCH ×2 (07:00)
[2017-04-27] MEDS ORDERED: TRANEXAMIC ACID IV SCH (07:00)
[2017-04-27] MEDS ORDERED: cloNIDine HCL 0.1 MG TAB PO PRN (08:45)
[2017-04-27] MEDS ORDERED: ENALAPRILAT 1.25 MG/ML VIAL IV PRN (08:45)
[2017-04-27] MEDS ORDERED: ACETAMINOPHEN 325 MG TAB PO PRN (08:45)
[2017-04-27] MEDS ORDERED: OXYMORPHONE 10 MG E.R. TAB PO SCH (09:00)
[2017-04-27] MEDS: SODIUM CHLORIDE 0.9% FLUSH 5 ML FLUSH IVF SCH ×2 (09:00→20:08)
[2017-04-27] MEDS ORDERED: *morphine SULFATE 8 MG/ML PERIprocedure ONLY ONE ×3 (09:05→09:29)
--- NOTE | 2017-04-27 09:39 | RADRPT ---
EXAM DATE/TIME: 04/27/2017 08:59 [facility] COMPARISON: No previous studies available for comparison. INDICATIONS : Post op right hip MEDICAL HISTORY : None. SURGICAL HISTORY : left hip replaced, right hip replaced ENCOUNTER: Initial ACUITY: 1 day PAIN SCORE: 10/10 LOCATION: Right hip FINDINGS: AP view of the pelvis with 4 views of the right hip demonstrate total hip arthroplasty hardware on th e right. The femoral component is noncemented. No acetabular screws are visualized. There are osteoph ytes/hypertrophic bone at the superior aspect of the acetabulum. Left total hip arthroplasty hardware is also present. No unexpected findings are visualized. There is soft tissue air. CONCLUSION: Expected findings are present following recent right total hip arthroplasty. Christian Fonseca MD on April 27, 2017 at 9:36 Board Certified Radiologist. This report was verified electronically.
[2017-04-27] MEDS ORDERED: DO NOT ADM ANY ANTICOAGULANT DRUGS PRN (09:45)
[2017-04-27] MEDS: SODIUM CHLOR 0.9% 1000 ML INJ 1,000 ML IV SCH ×2 (09:46→16:42)
[2017-04-27 10:50] VITALS: BP 160/78; PULSE 60; RESP 17; TEMP 96.1; O2SAT 97
[2017-04-27] MEDS: TRIAMTERENE/HCTZ 37.5 MG/25 MG TAB PO SCH (11:43)
[2017-04-27] MEDS ORDERED: PROPOFOL 200 MG/20 ML AMP IV ONE (12:00)
[2017-04-27] MEDS ORDERED: LACTATED RINGER'S 1000 ML INJ 1,000 ML IV ONE (12:00)
[2017-04-27] MEDS ORDERED: PHENYLEPH/NS 1000 MCG/10 ML SYR IV ONE (12:00)
[2017-04-27] MEDS ORDERED: NEOSTIGMINE 3 MG/3 ML SYR IV ONE (12:00)
[2017-04-27] MEDS ORDERED: ONDANSETRON HCL 4 MG/2 ML VIAL IV PUSH ONE (12:00)
[2017-04-27 12:45] VITALS: O2SAT 92
--- NOTE | 2017-04-27 12:56 | RADRPT ---
EXAM DATE/TIME: 04/27/2017 07:10 [facility] COMPARISON: No previous studies available for comparison. INDICATIONS : Right anertior hip replacement. MEDICAL HISTORY : Chronic obstructive pulmonary disease. Osteoarthritis. Hypertension. Smoker. SURGICAL HISTORY : Tonsillectomy. ENCOUNTER: Initial ACUITY: 1 day PAIN SCORE: Non-responsive. LOCATION: Right anterior hip. FINDINGS: Right total hip arthroplasty is present. Hardware is intact. Alignment is anatomic. Adjacent pelvis i s grossly unremarkable. CONCLUSION: Satisfactory operative appearance Christian Yung MD on April 27, 2017 at 12:54 Board Certified Radiologist. This report was verified electronically.
--- NOTE | 2017-04-27 13:14 | PD.ORT.PN ---
Objective Vitals Vital Signs Date Time Temp Pulse Resp B/P Pulse Ox O2 Delivery O2 Flow Rate FiO2 04/27/17 10:50 96.1 60 17 160/78 97 04/27/17 10:00 97.7 61 17 117/59 97 Nasal Cannula 3 04/27/17 09:45 65 17 163/94 97 Nasal Cannula 3 04/27/17 09:30 63 17 159/99 97 Nasal Cannula 3 04/27/17 09:15 63 16 157/72 98 Nasal Cannula 3 04/27/17 09:00 66 14 185/88 98 Nasal Cannula 3 04/27/17 08:56 97.6 79 14 187/95 98 Nasal Cannula 3 04/27/17 05:54 98.0 76 20 142/100 93 I/O 04/26/17 04/26/17 04/26/17 04/27/17 04/27/17 04/27/17 07:00 15:00 23:00 07:00 15:00 23:00 Intake Total 1000 ml Output Total 580 ml Balance 420 ml Intake IV Total 100 ml Other 900 ml Output Urine Total 130 ml Estimated Blood Loss 450 ml Imaging Last 24 hours Impressions Hip and Pelvis X-Ray 04/27/17 0000 Signed Impressions: Service Date/Time: Thursday, April 27, 2017 08:59 - CONCLUSION: Expected findings are present following recent right total hip arthroplasty. Christian Fonseca MD Hip X-Ray 04/27/17 0000 Signed Impressions: Service Date/Time: Thursday, April 27, 2017 07:10 - CONCLUSION: Satisfactory operative appearance Christian Yung MD Assessment & Plan Assessment and Plan s/p R JACY - anterior approach POD#0 wbat daily dressing changes lovenox d/c planning to snf [id number] and rx in chart f/up dr. alex 2 weeks Sixto Rea Apr 27, 2017 13:14
--- NOTE | 2017-04-27 13:16 | HHI.DCPOC ---
Discharge Care Plan Diagnosis: (1) Primary localized osteoarthrosis, pelvic region and thigh Your Health Problems Are: Difficulty with ADL Goals to Promote Your Health * To prevent worsening of your condition and complications * To maintain your health at the optimal level Directions to Meet Your Goals Take your medications as prescribed Follow your dietary instruction Follow activity as directed Keep your appointments as scheduled Take your immunizations and boosters as scheduled If your symptoms worsen call your PCP, if no PCP go to Urgent Care Center or Emergency Room Smoking is Dangerous to Your Health. Avoid second hand smoke Call the 24-hour hour crisis hotline for domestic abuse at Sixto Rea Apr 27, 2017 13:16
--- NOTE | 2017-04-27 13:17 | HHI.FF ---
Face to Face Verification Diagnosis: (1) Primary localized osteoarthrosis, pelvic region and thigh Physical Therapy Gait training, Safety evaluation, Transfer training, bed to chair Hip: Total hip, Protocol: Right Right LE Weight Bearing: WB as tolerated Nursing RN: 3 days/week x 2 weeks Nursing: [employer]shan teaching, Dressing changes Dressing Changes: Daily dressing change I have seen patient Bill Connors on 04/27/17. My clinical findings support the need for the requested home health care services because: Limited ability to care for self High risk of falls I certify that my clinical findings support that this patient is homebound because: Post-op weakness Unsteady gait/balance Sixto Rea Apr 27, 2017 13:17
[2017-04-27] MEDS ORDERED: OXYMORPHONE 10 MG PO PRN (14:15)
[2017-04-27] MEDS: ACETAMINOPHEN/HYDROcodone 325 MG/10 MG TAB PO PRN ×3 (14:46→23:59)
--- NOTE | 2017-04-27 14:55 | PD.CONS ---
HPI Service [facility] Consult Requested By Orthopedic team, Dr. Jarvis Reason for Consult Assist with medical management Primary Care Physician Hali Nazario MD Diagnoses: History of Present Illness Written by Jaron Preston, acting as scribe for Dr. Junior on 04/27/17 at 14: 36. Patient is a 62-year-old male with primary medical history of osteoarthritis, HTN, HLD, chronic pain on Opana in outpatient who came in for elective right hip surgery secondary to arthritis. Patient is status post right total hip arthroplasty. Consulted for medical management. Patient seen and examined today. Reports he is doing well. Patient verified his medical and surgical histories. States he recently had a left hip done last December and it went well. He continues to take pain medications at home and clarified that he takes 2 tablets of 40 mg Opana timed release twice a day, one tablet of 10 mg oxymorphone for breakthrough pain. States that he only takes it once a day for breakthrough pain. Right now, pain is tolerable. Otherwise, denies SOB/ dyspnea. Denies chest pain, palpitations, headaches, dizziness. Denies fevers, chills, n/v/d. Review of Systems Except as stated in HPI: all other systems reviewed are Neg Past Family Social History Allergies: Coded Allergies: No Known Allergies (Unverified , 04/27/17) Past Medical History Osteoarthritis HTN Dyslipidemia Chronic pain ?COPD Past Surgical History Knee replacement Tonsillectomy Right eye surgery Left total hip arthroplasty Reported Medications Reported Meds & Active Scripts Active Aspirin Low Dose (Aspirin) 81 Mg Chew 81 Mg CHEW BID Lovenox Inj (Enoxaparin Sodium) 40 Mg/0.4 Ml Syr 40 Mg SQ DAILY [place] (Hydrocodone-Acetaminophen) 7.5-325 mg Tab 1-2 Tab PO Q6H PRN Oxymorphone ER 12 HR (Oxymorphone HCl) 10 Mg Tab 10 Mg PO DAILY Commode 3-in-1 (Device) 1 Mis Mis 1 Ea .ROUTE DIRECTED Walker with Front Wheels (Device) 1 Mis Mis 1 Ea .ROUTE DIRECTED Reported Diphenhydramine (Diphenhydramine HCl) 25 Mg Cap 75 Mg PO HS PRN Opana ER (Crush Resistant) (Oxymorphone HCl) 40 Mg Tab 80 Mg PO Q12H PRN Triamterene-Hydrochlorothiazide 37.5-25 Mg Tab 0.5 Tab PO DAILY Atorvastatin (Atorvastatin Calcium) 20 Mg Tab 20 Mg PO DAILY Diphenhydramine (Diphenhydramine HCl) 25 Mg Cap 50 Mg PO DAILY PRN Active Ordered Medications Current Medications Medications (Trade) Dose Ordered Sig/Ashley Route Start Time Stop Time Status Last Admin Lactated Ringer's 1,000 ml @ 30 mls/hr Q24H PRN IV 04/27/17 05:45 04/30/17 05:44 04/27/17 05:51 (NS 500 ml Inj) 500 ml @ 30 mls/hr [id number] PRN IV 04/27/17 05:45 04/30/17 05:44 (Betadine 7.5% Scrub) 1 applic ONCE TOPICAL 04/27/17 05:45 04/30/17 05:44 04/27/17 06:05 (Hibiclens 4% Top Soln) 1 applic ONCE TOPICAL 04/27/17 05:45 04/30/17 05:44 Triamterene/HCTZ 0.5 tab 0.5 tab DAILY PO 04/27/17 09:00 04/27/17 11:43 (NS 1000 ml Inj) 1,000 ml @ 100 mls/hr Q10H IV 04/27/17 06:42 04/27/17 09:46 (NS Flush) 2 ml UNSCH PRN IVF 04/27/17 06:45 IV Flush 2 ml 2 ml BID IVF 04/27/17 09:00 (Ancef Inj/NS Inj) 100 ml @ 200 mls/hr Q6H IV 04/27/17 12:00 04/28/17 00:29 04/27/17 12:08 (Lovenox Inj) 40 mg Q24H SQ 04/28/17 08:00 05/07/17 08:01 (Morphine Inj) 3 mg Q3H PRN IV PUSH 04/27/17 06:45 ([place] 10-325 Mg) 1 tab Q4H PRN PO 04/27/17 06:45 (Theragran M Tab) 1 tab BID PO 04/28/17 21:00 06/27/17 20:59 (Zofran Inj) 4 mg Q6H PRN IVP 04/27/17 06:45 (Colace) 100 mg BID PO 04/28/17 21:00 (Ambien) 5 mg HS PRN PO 04/27/17 06:45 (Dulcolax Supp) 10 mg DAILY PRN RECTAL 04/27/17 06:45 (Benadryl Inj) 25 mg Q6H PRN IV 04/27/17 06:45 (Vasotec Inj) 1.25 mg Q6H PRN IV 04/27/17 08:45 (Catapres) 0.1 mg Q6H PRN PO 04/27/17 08:45 (Tylenol) 325 mg Q4H PRN PO 04/27/17 08:45 Miscellaneous Information ALL NURSING DEPARTME... UNSCH PRN .XX 04/27/17 09:45 04/28/17 09:44 (Opana Er) 80 mg Q12H PO 04/27/17 19:00 (Opana) 10 mg Q6H PRN PO 04/27/17 14:15 Family History Mother had liver cancer Father had lung cancer Social History Denies alcohol use Denies tobacco use Denies illicit drug use Physical Exam Vital Signs Vital Signs Date Time Temp Pulse Resp B/P Pulse Ox O2 Delivery O2 Flow Rate FiO2 04/27/17 13:00 16 04/27/17 12:45 92 21 04/27/17 10:50 96.1 60 17 160/78 97 04/27/17 10:00 97.7 61 17 117/59 97 Nasal Cannula 3 04/27/17 09:45 65 17 163/94 97 Nasal Cannula 3 04/27/17 09:30 63 17 159/99 97 Nasal Cannula 3 04/27/17 09:15 63 16 157/72 98 Nasal Cannula 3 04/27/17 09:00 66 14 185/88 98 Nasal Cannula 3 04/27/17 08:56 97.6 79 14 187/95 98 Nasal Cannula 3 04/27/17 05:54 98.0 76 20 142/100 93 Physical Exam GENERAL: This is a well-nourished, well-developed patient, in no apparent distress. SKIN: Warm and dry. HEAD: Normocephalic. No temporal or scalp tenderness. 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 Left eye without scleral icterus, injection or drainage. ENT: Nose without bleeding. Throat without erythema. Uvula midline. Airway patent. NECK: Trachea midline. No JVD or lymphadenopathy. Supple, nontender, no meningeal signs. CARDIOVASCULAR: Regular rate and rhythm without murmurs, gallops, or rubs. RESPIRATORY: Clear to auscultation. Breath sounds equal bilaterally. No wheezes , rales, or rhonchi. GASTROINTESTINAL: Abdomen soft, non-tender, nondistended. No guarding. Bowel sounds active 4. MUSCULOSKELETAL: Extremities without clubbing, cyanosis, or edema. NEUROLOGICAL: Awake and alert. Motor and sensory grossly within normal limits. Normal speech. Laboratory Laboratory Tests Test 04/27/17 05:50 Blood Type A POSITIVE Antibody Screen NEGATIVE Imaging Last Impressions Hip and Pelvis X-Ray 04/27/17 0000 Signed Impressions: Service Date/Time: Thursday, April 27, 2017 08:59 - CONCLUSION: Expected findings are present following recent right total hip arthroplasty. Christian Fonseca MD Hip X-Ray 04/27/17 0000 Signed Impressions: Service Date/Time: Thursday, April 27, 2017 07:10 - CONCLUSION: Satisfactory operative appearance Christian Yung MD Assessment and Plan Problem List: (1) Primary localized osteoarthrosis, pelvic region and thigh ICD Code: M16.10 Status: Acute (2) Status post total hip replacement, right ICD Code: Z96.641 Status: Acute (3) HLD (hyperlipidemia) ICD Code: E78.5 Status: Chronic (4) HTN (hypertension) ICD Code: I10 Status: Chronic Assessment and Plan Patient is a 62-year-old male with primary medical history of osteoarthritis, HTN, HLD, chronic pain on Opana in outpatient who came in for elective right hip surgery secondary to arthritis. Patient is status post right total hip arthroplasty. Consulted for medical management. Status post right total hip arthroplasty secondary to osteoarthritis - Managed by primary team - Pain management - we will continue home regimen 80 mg of Opana timed release twice a day, for pain breakthrough pain 1-5 Lortab when necessary, Opana 10 mg every 6 hours when necessary for pain 6-10. - Physical therapy to eval and treat - weightbearing as tolerated - [facility] - HTN - Continue triamterene/hydrochlorothiazide 37.5/25 mg half a tab daily - Monitor BP trend HLD - Continue with atorvastatin 20 mg daily DVT prop Lovenox Code Status Full code Discussed Condition With Patient, nursing This note was transcribed by bebe Preston. I, Dr. Brandon Junior personally performed the history, physical exam, and medical decision making; and confirmed the accuracy of the information in the transcribed note. Authenticated by Dr. Brandon Junior on 04/27/17 at14:39 . Problem Qualifiers (1) HTN (hypertension): Qualified Code: I10 - Essential hypertension Jaron Long Apr 27, 2017 14:55 Brandon Junior MD Apr 27, 2017 22:07
[2017-04-27 15:00] VITALS: BP 126/72; PULSE 79; RESP 18; TEMP 96.4; O2SAT 92
[2017-04-27 19:00] VITALS: BP 123/69; PULSE 73; RESP 16; TEMP 97.8; O2SAT 92
[2017-04-27] MEDS: OXYMORPHONE 10 MG E.R. TAB PO SCH (19:00)
[2017-04-28] VITALS (7 sets, daily range): BP systolic 112–133; BP diastolic 67–77; PULSE 62–80; RESP 17–18; TEMP 95.8–96.9; O2SAT 92–94
[2017-04-28] MEDS: SODIUM CHLOR 0.9% 1000 ML INJ 1,000 ML IV SCH ×3 (02:42→20:25)
[2017-04-28] MEDS: OXYMORPHONE 10 MG E.R. TAB PO SCH ×2 (07:00→19:00)
[2017-04-28 07:47] LABS: HEMATOCRIT 39.2 % (39.0-51.0); MEAN CELL VOLUME 84.6 FL (80.0-100.0); MEAN CORPUSCULAR HEMOGLOBIN 29.2 PG (27.0-34.0); MEAN CORPUSCULAR HGB CONC 34.5 % (32.0-36.0); PLATELET COUNT 201 TH/MM3 (150-450); RED BLOOD COUNT 4.63 MIL/MM3 (4.50-5.90); RED CELL DISTRIBUTION WIDTH 15.6 % (11.6-17.2); REVIEW FLAG FINAL; WHITE BLOOD COUNT 12.6 TH/MM3 (4.0-11.0)
[2017-04-28 08:00] LABS: BICARBONATE 27.8 MEQ/L (21.0-32.0); POTASSIUM 3.9 MEQ/L (3.5-5.1)
[2017-04-28] MEDS: ACETAMINOPHEN/HYDROcodone 325 MG/10 MG TAB PO PRN ×3 (08:20→20:22)
[2017-04-28] MEDS: TRIAMTERENE/HCTZ 37.5 MG/25 MG TAB PO SCH (08:21)
[2017-04-28] MEDS: SODIUM CHLORIDE 0.9% FLUSH 5 ML FLUSH IVF SCH ×2 (08:21→20:20)
[2017-04-28] MEDS: ENOXAPARIN SODIUM 40 MG/0.4 ML SYRINGE SQ SCH (08:21)
--- NOTE | 2017-04-28 09:45 | PD.ORT.PN ---
Subjective Post Op Day #: 1 Subjective Remarks Patient OOB in chair in NAD. Patient reports minimal pain and states he has been ambulatory with minimal limitations. Objective Vitals Vital Signs Date Time Temp Pulse Resp B/P Pulse Ox O2 Delivery O2 Flow Rate FiO2 04/28/17 07:39 96.0 71 18 133/72 92 04/28/17 06:38 93 Nasal Cannula 2.00 04/28/17 04:00 96.3 80 17 112/70 93 04/28/17 00:00 96.9 66 18 115/67 93 04/27/17 19:00 97.8 73 16 123/69 92 04/27/17 15:50 13 04/27/17 15:00 96.4 79 18 126/72 92 04/27/17 13:00 16 04/27/17 12:45 92 21 04/27/17 10:50 96.1 60 17 160/78 97 04/27/17 10:00 97.7 61 17 117/59 97 Nasal Cannula 3 04/27/17 09:45 65 17 163/94 97 Nasal Cannula 3 I/O 04/27/17 04/27/17 04/27/17 04/28/17 04/28/17 04/28/17 07:00 15:00 23:00 07:00 15:00 23:00 Intake Total 1720 ml 480 ml 250 ml Output Total 580 ml 1300 ml 100 ml Balance 1140 ml -820 ml 150 ml Intake Oral 720 ml 480 ml 250 ml IV Total 100 ml Other 900 ml Output Urine Total 130 ml 1300 ml 100 ml Estimated Blood Loss 450 ml # Voids 0 # Bowel Movements 0 0 0 Result Diagram: 04/28/1710 04/28/17 0710 Imaging Last 24 hours Impressions Hip and Pelvis X-Ray 04/27/17 0000 Signed Impressions: Service Date/Time: Thursday, April 27, 2017 08:59 - CONCLUSION: Expected findings are present following recent right total hip arthroplasty. Christian Fonseca MD Hip X-Ray 04/27/17 0000 Signed Impressions: Service Date/Time: Thursday, April 27, 2017 07:10 - CONCLUSION: Satisfactory operative appearance Christian Yung MD Procedures Right JACY Objective Remarks Dressing is C/D/I. EHL/TA/G intact. 2+ pedal pulse. Calf is soft and nontender. + SILT. Assessment & Plan Ortho Post Op Day #: 1 Problem List: Assessment and Plan s/p R JACY - anterior approach POD#1 wbat daily dressing changes lovekym d/c planning to [facility] ([facility]) 3008 and rx in chart f/up dr. alex 2 weeks Héctor Ramos Apr 28, 2017 09:44
--- NOTE | 2017-04-28 12:34 | HHI.PR ---
Subjective Remarks Follow-up orthopedic surgery. Pain is currently controlled. Objective Vitals Vital Signs Date Time Temp Pulse Resp B/P Pulse Ox O2 Delivery O2 Flow Rate FiO2 04/28/17 11:56 96.0 62 18 118/71 94 04/28/17 07:39 96.0 71 18 133/72 92 04/28/17 06:38 93 Nasal Cannula 2.00 04/28/17 04:00 96.3 80 17 112/70 93 04/28/17 00:00 96.9 66 18 115/67 93 04/27/17 19:00 97.8 73 16 123/69 92 04/27/17 15:50 13 04/27/17 15:00 96.4 79 18 126/72 92 04/27/17 13:00 16 04/27/17 12:45 92 21 I/O 04/27/17 04/27/17 04/27/17 04/28/17 04/28/17 04/28/17 06:59 14:59 22:59 06:59 14:59 22:59 Intake Total 1720 ml 480 ml 250 ml Output Total 580 ml 1300 ml 100 ml Balance 1140 ml -820 ml 150 ml Intake Oral 720 ml 480 ml 250 ml IV Total 100 ml Other 900 ml Output Urine Total 130 ml 1300 ml 100 ml Estimated Blood Loss 450 ml # Voids 0 # Bowel Movements 0 0 0 Result Diagram: 04/28/17 0710 04/28/17 0710 Imaging Last Impressions Hip and Pelvis X-Ray 04/27/17 0000 Signed Impressions: Service Date/Time: Thursday, April 27, 2017 08:59 - CONCLUSION: Expected findings are present following recent right total hip arthroplasty. Christian Fonseca MD Hip X-Ray 04/27/17 0000 Signed Impressions: Service Date/Time: Thursday, April 27, 2017 07:10 - CONCLUSION: Satisfactory operative appearance Christian Yung MD Objective Remarks GENERAL: Well-developed, well-nourished in no distress CARDIOVASCULAR: Regular rate and rhythm. RESPIRATORY: No accessory muscle use. Clear to auscultation. Breath sounds equal bilaterally. GASTROINTESTINAL: Abdomen soft, non-tender, nondistended. MUSCULOSKELETAL: Extremities without clubbing, cyanosis, or edema. No obvious deformities. NEUROLOGICAL: Awake and alert. No obvious cranial nerve deficits. Motor grossly within normal limits. Five out of 5 muscle strength in the arms and legs. Normal speech. A/P Problem List: (1) Primary localized osteoarthrosis, pelvic region and thigh ICD Code: M16.10 Status: Acute (2) Status post total hip replacement, right ICD Code: Z96.641 Status: Acute (3) HLD (hyperlipidemia) ICD Code: E78.5 Status: Chronic (4) HTN (hypertension) ICD Code: I10 Status: Chronic Assessment and Plan Patient is a 62-year-old male with primary medical history of osteoarthritis, HTN, HLD, chronic pain on Opana in outpatient who came in for elective right hip surgery secondary to arthritis. Patient is status post right total hip arthroplasty. Consulted for medical management. Status post right total hip arthroplasty secondary to osteoarthritis - Stable - Pain management - we will continue home regimen 80 mg of Opana timed release twice a day, for pain breakthrough pain 1-5 Lortab when necessary, Opana 10 mg every 6 hours when necessary for pain 6-10. - Physical therapy to eval and treat - weightbearing as tolerated - Plan to discharge to assisted facility for further rehabilitation - HTN - Continue triamterene/hydrochlorothiazide 37.5/25 mg half a tab daily - Monitor BP trend. Stable HLD - Continue with atorvastatin 20 mg daily Leukocytosis likely reactive Hyperglycemia, mild. Monitor DVT prop Lovenox Problem Qualifiers (1) HTN (hypertension): Qualified Code: I10 - Essential hypertension Brandon Junior MD Apr 28, 2017 12:34
[2017-04-28] MEDS: MULTIVITAMINS/MINERALS THERAPEUTIC TAB PO SCH (20:20)
[2017-04-28] MEDS: DOCUSATE SODIUM 100 MG CAP PO SCH (20:20)
[2017-04-29] VITALS (7 sets, daily range): BP systolic 128–139; BP diastolic 68–80; PULSE 70–84; RESP 16–20; TEMP 96.9–98.2; O2SAT 92
[2017-04-29] MEDS: ACETAMINOPHEN/HYDROcodone 325 MG/10 MG TAB PO PRN ×5 (02:07→22:59)
[2017-04-29] MEDS: OXYMORPHONE 10 MG E.R. TAB PO SCH ×2 (05:59→19:00)
[2017-04-29 06:42] LABS: HEMATOCRIT 43.5 % (39.0-51.0); MEAN CELL VOLUME 87.8 FL (80.0-100.0); MEAN CORPUSCULAR HGB CONC 31.9 % (32.0-36.0); PLATELET COUNT 219 TH/MM3 (150-450); RED BLOOD COUNT 4.96 MIL/MM3 (4.50-5.90); RED CELL DISTRIBUTION WIDTH 16.4 % (11.6-17.2); REVIEW FLAG FINAL; WHITE BLOOD COUNT 13.6 TH/MM3 (4.0-11.0)
[2017-04-29 06:55] LABS: POTASSIUM 3.7 MEQ/L (3.5-5.1)
[2017-04-29] MEDS: TRIAMTERENE/HCTZ 37.5 MG/25 MG TAB PO SCH (08:40)
[2017-04-29] MEDS: MULTIVITAMINS/MINERALS THERAPEUTIC TAB PO SCH ×2 (08:40→22:59)
[2017-04-29] MEDS: ENOXAPARIN SODIUM 40 MG/0.4 ML SYRINGE SQ SCH (08:40)
[2017-04-29] MEDS: SODIUM CHLORIDE 0.9% FLUSH 5 ML FLUSH IVF SCH ×2 (08:41→23:03)
[2017-04-29] MEDS: SODIUM CHLOR 0.9% 1000 ML INJ 1,000 ML IV SCH ×2 (08:41→16:31)
[2017-04-29] MEDS: DOCUSATE SODIUM 100 MG CAP PO SCH ×2 (08:41→22:59)
--- NOTE | 2017-04-29 09:20 | PD.ORT.PN ---
Subjective Subjective Remarks some thigh soreness Objective Vitals Vital Signs Date Time Temp Pulse Resp B/P Pulse Ox O2 Delivery O2 Flow Rate FiO2 04/29/17 06:43 92 04/29/17 00:00 98.2 77 20 136/70 92 04/28/17 20:00 96.7 74 18 126/77 93 04/28/17 19:23 Room Air 04/28/17 15:34 95.8 74 18 123/76 93 04/28/17 11:56 96.0 62 18 118/71 94 I/O 04/28/17 04/28/17 04/28/17 04/29/17 04/29/17 04/29/17 07:00 15:00 23:00 07:00 15:00 23:00 Intake Total 250 ml 480 ml 570 ml 810 ml Output Total 100 ml 650 ml 650 ml 900 ml Balance 150 ml -170 ml -80 ml -90 ml Intake Oral 250 ml 480 ml 570 ml 810 ml Output Urine Total 100 ml 650 ml 650 ml 900 ml # Bowel Movements 0 0 Result Diagram: 04/29/17 0610 04/29/17 0610 Imaging Last 24 hours Impressions Hip and Pelvis X-Ray 04/27/17 0000 Signed Impressions: Service Date/Time: Thursday, April 27, 2017 08:59 - CONCLUSION: Expected findings are present following recent right total hip arthroplasty. Christian Fonseca MD Hip X-Ray 04/27/17 0000 Signed Impressions: Service Date/Time: Thursday, April 27, 2017 07:10 - CONCLUSION: Satisfactory operative appearance Christian Yung MD Procedures Right JACY Objective Remarks Dressing is C/D/I (post-op dressing changed by nurse today), no surrounding erythema. EHL/TA/G intact. 2+ pedal pulse. Calf is soft and nontender. + SILT. Assessment & Plan Assessment and Plan s/p R JACY - anterior approach POD#2 progressing well wbat daily dressing changes lovenox d/c planning to snf ([facility]), tomorrow 3008 and rx in chart f/up dr. alex 2 weeks Noe Durnat MD Apr 29, 2017 09:20
--- NOTE | 2017-04-29 10:14 | HHI.PR ---
Subjective Remarks Follow-up right hip arthroplasty. Pain under control. No BM but passing gas. Discussed with RN, home med list needs to be updated specially pain medicines. Objective Vitals Vital Signs Date Time Temp Pulse Resp B/P Pulse Ox O2 Delivery O2 Flow Rate FiO2 04/29/17 07:12 96.9 79 18 131/75 92 04/29/17 06:43 92 04/29/17 00:00 98.2 77 20 136/70 92 04/28/17 20:00 96.7 74 18 126/77 93 04/28/17 19:23 Room Air 04/28/17 15:34 95.8 74 18 123/76 93 04/28/17 11:56 96.0 62 18 118/71 94 I/O 04/28/17 04/28/17 04/28/17 04/29/17 04/29/17 04/29/17 07:00 15:00 23:00 07:00 15:00 23:00 Intake Total 250 ml 480 ml 570 ml 810 ml Output Total 100 ml 650 ml 650 ml 900 ml Balance 150 ml -170 ml -80 ml -90 ml Intake Oral 250 ml 480 ml 570 ml 810 ml Output Urine Total 100 ml 650 ml 650 ml 900 ml # Bowel Movements 0 0 Result Diagram: 04/29/17 0610 04/29/17 0610 Objective Remarks GENERAL: Well-developed, well-nourished in no distress CARDIOVASCULAR: Regular rate and rhythm. RESPIRATORY: No accessory muscle use. Clear to auscultation. Breath sounds equal bilaterally. GASTROINTESTINAL: Abdomen soft, non-tender, nondistended. MUSCULOSKELETAL: Extremities without clubbing, cyanosis, or edema. No obvious deformities. NEUROLOGICAL: Awake and alert. No obvious cranial nerve deficits. Motor grossly within normal limits. Five out of 5 muscle strength in the arms and legs. Normal speech. A/P Problem List: (1) Primary localized osteoarthrosis, pelvic region and thigh ICD Code: M16.10 Status: Acute (2) Status post total hip replacement, right ICD Code: Z96.641 Status: Acute (3) HLD (hyperlipidemia) ICD Code: E78.5 Status: Chronic (4) HTN (hypertension) ICD Code: I10 Status: Chronic Assessment and Plan Patient is a 62-year-old male with primary medical history of osteoarthritis, HTN, HLD, chronic pain on Opana in outpatient who came in for elective right hip surgery secondary to arthritis. Patient is status post right total hip arthroplasty. Consulted for medical management. Status post right total hip arthroplasty secondary to osteoarthritis - Stable - Pain management - we will continue home regimen 80 mg of Opana timed release twice a day, for pain breakthrough pain 1-5 Lortab when necessary, Opana 10 mg every 6 hours when necessary for pain 6-10. - Physical therapy to eval and treat - weightbearing as tolerated - Plan to [facility] for further rehabilitation - HTN - Continue triamterene/hydrochlorothiazide 37.5/25 mg half a tab daily - Monitor BP trend. Stable HLD - Continue with atorvastatin 20 mg daily Leukocytosis likely reactive. Slightly worse. Continue to monitor Hyperglycemia, mild. Fasting glucose 88. Monitor DVT prop Lovenox Problem Qualifiers (1) HTN (hypertension): Qualified Code: I10 - Essential hypertension Brandon Junior MD Apr 29, 2017 10:14
[2017-04-29] MEDS ORDERED: OXYMTAB2 PO (19:36)
[2017-04-29] MEDS ORDERED: OXYM40TA5 PO (19:36)
[2017-04-30] VITALS: BP 124/76; PULSE 69; RESP 17; TEMP 98.7; O2SAT 93
[2017-04-30] MEDS: SODIUM CHLOR 0.9% 1000 ML INJ 1,000 ML IV SCH (04:42)
[2017-04-30] MEDS: OXYMORPHONE 10 MG E.R. TAB PO SCH (05:00)
[2017-04-30 08:03] VITALS: BP 141/69; PULSE 79; RESP 18; TEMP 97.1; O2SAT 92
[2017-04-30] MEDS: ENOXAPARIN SODIUM 40 MG/0.4 ML SYRINGE SQ SCH (08:25)
[2017-04-30] MEDS: SODIUM CHLORIDE 0.9% FLUSH 5 ML FLUSH IVF SCH (08:25)
[2017-04-30] MEDS: MULTIVITAMINS/MINERALS THERAPEUTIC TAB PO SCH (08:25)
[2017-04-30] MEDS: DOCUSATE SODIUM 100 MG CAP PO SCH (08:25)
[2017-04-30] MEDS: TRIAMTERENE/HCTZ 37.5 MG/25 MG TAB PO SCH (08:26)
--- NOTE | 2017-04-30 08:57 | HHI.PR ---
Subjective Remarks Follow-up orthopedic surgery. States he is doing well pain under control. Still no BM by passing gas not abdominal pain and nausea. Discussed with RN, patient refusing Opana ER and IR Objective Vitals Vital Signs Date Time Temp Pulse Resp B/P Pulse Ox O2 Delivery O2 Flow Rate FiO2 04/30/17 08:33 Room Air 04/30/17 08:03 97.1 79 18 141/69 92 04/30/17 00:00 98.7 69 17 124/76 93 04/29/17 19:00 97.2 79 16 128/68 92 04/29/17 18:54 Room Air 04/29/17 16:00 97.0 84 18 139/80 92 04/29/17 11:32 97.2 70 18 131/79 92 04/29/17 10:20 92 21 I/O 04/29/17 04/29/17 04/29/17 04/30/17 04/30/17 04/30/17 06:59 14:59 22:59 06:59 14:59 22:59 Intake Total 810 ml 840 ml 480 ml 400 ml Output Total 900 ml 500 ml 200 ml Balance -90 ml 840 ml -20 ml 200 ml Intake Oral 810 ml 840 ml 480 ml 400 ml Output Urine Total 900 ml 500 ml 200 ml # Voids 5 # Bowel Movements 1 0 0 Result Diagram: 04/29/17 0610 04/29/17 0610 Objective Remarks GENERAL: Well-developed, well-nourished in no distress CARDIOVASCULAR: Regular rate and rhythm. RESPIRATORY: No accessory muscle use. Clear to auscultation. Breath sounds equal bilaterally. GASTROINTESTINAL: Abdomen soft, non-tender, nondistended. MUSCULOSKELETAL: Extremities without clubbing, cyanosis, or edema. No obvious deformities. NEUROLOGICAL: Awake and alert. No obvious cranial nerve deficits. Motor grossly within normal limits. Five out of 5 muscle strength in the arms and legs. Normal speech. Non-focal A/P Problem List: (1) Primary localized osteoarthrosis, pelvic region and thigh ICD Code: M16.10 Status: Acute (2) Status post total hip replacement, right ICD Code: Z96.641 Status: Acute (3) HLD (hyperlipidemia) ICD Code: E78.5 Status: Chronic (4) HTN (hypertension) ICD Code: I10 Status: Chronic Assessment and Plan Patient is a 62-year-old male with primary medical history of osteoarthritis, HTN, HLD, chronic pain on Opana in outpatient who came in for elective right hip surgery secondary to arthritis. Patient is status post right total hip arthroplasty. Consulted for medical management. Status post right total hip arthroplasty secondary to osteoarthritis - Stable - Pain management - continue Lortab and IV morphine sulfate. Refusing home regimen 80 mg of Opana timed release twice a day and Opana 10 mg every 6 hours when necessary for pain 6-10. - Physical therapy to eval and treat - weightbearing as tolerated - Plan to [facility] for further [facility] today - HTN - Continue triamterene/hydrochlorothiazide 37.5/25 mg half a tab daily - Monitor BP trend. Stable HLD - Continue with atorvastatin 20 mg daily Leukocytosis likely reactive. Slightly worse. Continue to monitor. Labs pending Hyperglycemia, mild. Fasting glucose 88. Monitor DVT prop Lovenox Discharge Planning Stable for discharge from medical standpoint Problem Qualifiers (1) HTN (hypertension): Qualified Code: I10 - Essential hypertension Brandon Junior MD Apr 30, 2017 08:56
--- NOTE | 2017-04-30 09:48 | MP ---
cc: NOÉ GALICIA DATE OF SURGERY 04/27/2017 PREOPERATIVE DIAGNOSIS Right hip osteoarthritis POSTOPERATIVE DIAGNOSES Right hip osteoarthritis PROCEDURE Right total arthroplasty SURGEON Dr. Paul Galicia TECH INTERN ELIDA Wiley ANESTHESIA General. ESTIMATED BLOOD LOSS 200 cc COMPLICATIONS None. IMPLANTS USED DePuy Corail size 14 Press-Fit high offset femoral stem, size 54 cup, 36 ceramic head, +5 neck. JUSTIFICATION This patient is a 52-year male with history of severe end-stage degenerative osteoarthritis involving the right hip joint. He has severe disabling pain with standing, walking, ambulation weight bearing activities even severe pain at rest. It does interfere with activities of daily living. He has failed greater than 3 months of non-operative conservative to include medication therapy, injections, ambulatory assistive aids, activity modification, weight loss attempts. X-rays of the right hip reveals severe end-stage osteoarthritis with [id number] joint space narrowing, subchondral sclerosis, subchondral cyst osteophyte formation and subluxation. The patient counseled as to risks, benefits and alternative to total hip arthroplasty. Risks were discussed which included but limited to bleeding, infection, damage to nerves, blood vessels, pain, stiffness, fracture-dislocation, leg length discrepancies, blood clots, pulmonary embolism, even . The patient's pain is severe. He favored benefits over the risks and did wish to proceed with surgery. PROCEDURE IN DETAIL Written consent obtained. The patient identified by name, taken to the operating room, placed supine on the operating room. General anesthesia was administered as well as 2 grams of IV Ancef and 1 gram of IV vancomycin. The right and left feet were placed in padded traction boots. The right hip and right lower extremity were prepped and draped using isopropyl alcohol, Hibiclens solution and DuraPrep solution. After time-out was performed, a longitudinal incision was made over the anterolateral aspect of the right hip. The fascial layer was incised, dissection was carried over tensor fascia nella beneath rectus femoris to allow exposure of the anterior hip capsule. A capsulotomy incision was performed. An oscillating saw was used to perform a femoral neck cut. The osteoarthritic femoral head neck component was removed. A 10 blade scalpel was used to excise the labrum. Sequential reaming began at size 47 was carried to size 54. Subsequently, a solid pinnacle 54 cup was implanted in approximately 45 degrees of abduction, 10 degrees of anteversion. There was good purchase and fixation after insertion of the cup. A screw ____ was placed followed by the neutral liner. The polyethylene liner was impacted in place and tested for stability. Attention was turned to the femur where the leg was externally rotated, extended in adduction. The capsules was released off the undersurface of the greater trochanter. This allowed for elevation and lateralization of the femur. A box osteotome used to gain entrance into the intramedullary canal followed by canal finder with sequential broaching carried through a size 14. This was followed by calcar planer. Trial head neck combinations were evaluated and found current components, leg achieved full extension [address] extension [address] the way down to the ground without evidence of anterior instability. No evidence of impingement, soft tissue tension felt appropriate. Fluoroscopic image showed appropriate implantation of components. The surgical wound was thoroughly irrigated with sterile saline pulse lavage antibiotic impregnated solution. The fascial area was closed with #1 Vicryl suture. Subcutaneous tissue closed with 2-0 Vicryl suture. Skin was closed with Dermabond. Sterile dressing applied. The patient tolerated procedure well with no intraoperative complications noted. Celestino Rea physician billing assistant certified was present during the entire procedure to include patient positioning and procedure itself. The medical necessity of physician billing assistant was indicated in this case due the complexity of the procedure. He assisted with appropriate manipulation of the leg and also retraction of muscle, tendon, bone and neurovascular structures. He assisted with preparation of bone and also implantation of prosthetic replacement. MD CASEY Hanson/ /8:40 AM /9:40 AM
[2017-04-30 12:24] VITALS: O2SAT 93
== END 2017-04-30 14:27 | DRG 470 ==
LOC: HSDI 04-27 05:18 → N06B 04-27 10:21
PROVIDERS: ADMIT Orthopaedic Surgery Sports Medicine; ATTEND Orthopaedic Surgery Sports Medicine
PROC: 0SR904A Replacement of Right Hip Joint with Ceramic on Polyethylene Synthetic Substitute, Uncemented, Open Approach (ICD-10-PCS; principal; 2017-04-27 06:41)
DX: M16.11 Unilateral primary osteoarthritis, right hip (principal); Z96.642 Presence of left artificial hip joint; I10 Essential (primary) hypertension; E78.5 Hyperlipidemia, unspecified; G89.29 Other chronic pain; Z96.652 Presence of left artificial knee joint; Z72.0 Tobacco use; Z79.899 Other long term (current) drug therapy; R73.9 Hyperglycemia, unspecified; D72.829 Elevated white blood cell count, unspecified
CPT/HCPCS: 73502; 76000; 80048; 85027; 86850; 86900; 86901; 94150; C1776; C9290; J0131; J0690; J1100; J1580; J1650; J2250; J2270; J2370; J2405; J2710; J3010; J3370; J7030; J7050; J7120